=== PATIENT | male | born 1960 | race Caucasian/White ===

== ENCOUNTER 2018-07-30 04:59 | Emergency (ER) | payer OTHER, SELFPAY ==
[2018-07-30] VITALS (51 sets, daily range): BP systolic 118–157; BP diastolic 59–80; PULSE 61–94; RESP 7–54; TEMP 37; O2SAT 93–98
[2018-07-30] MEDS: Aspirin 81 MG CHEW 324 MG CH (05:21)
[2018-07-30] MEDS: Normal Saline Flush 10 ML SYR IVP (05:22)
--- NOTE | 2018-07-30 05:32 | ED.GENADUL_ITS ---
Discharge Plan Disposition Patient Disposition: HOME Condition: Good Discharge Details Chief Complaint: Chest Pain Clinical Impression: Chest pain Primary Care Provider: Laurel Rodriguez ED Provider: Crista Biggs Home Meds and New Rx's Prescriptions: Continue esomeprazole magnesium [Nexium] 40 MG capsule,delayed release(DR/EC) 40 mg PO DAILY Qty: 30 RF: 6 venlafaxine 37.5 MG capsule,extended release 24hr 37.5 mg PO DAILY Qty: 90 RF: 3 sucralfate 1 gram tablet 1 g PO QID Qty: 90 RF: 1 acetaminophen [Tylenol] 325 MG tablet 650 mg PO PRN PRNRF: 0 Discharge Instructions Instructions: Chest Pain (ED) Additional Instructions: Please take your regular medications as prescribed. Call your primary care doctor today to schedule follow-up appointment for next week. Return immediately to the emergency department any worsening or new concerning symptoms. Referrals: Laurel Rodriguez MD [Primary Care Provider] - Discharge Data Discharge Date/Time-TO BE ENTERED AT DEPARTURE: 07/30/18 10:46 Discharge Physician: Crista Biggs Medical Decision Making <Mandeep Pang MD - Last Filed: 07/31/18 00:40> Patient presenting with complaint of left-sided chest pain for 12 hours. States at times last night it woke him up. It has more or less been there throughout the night. At this point only describing it as discomfort not pain. No real associated symptoms, maybe a little shortness of breath at times. No radiation of pain. Pain better with standing. Presentation not worrisome for dissection or PE. Not overly concerning for ACS. May be related to his reflux especially since standing makes it better. Initial EKG is unchanged from previous. He is given chewable aspirin. Laboratory studies and chest x-ray ordered. Patient got relief with a GI cocktail. Chest x-ray is unremarkable. Laboratory studies unremarkable. First troponin negative. HEART score is 2. If repeat troponin and EKG unchanged can be discharged home to follow-up with primary care. Resume his previous medications which he has not been taking the way he is supposed to as prescribed both for his depression and his reflux. Patient will be signed out to oncoming physician Dr. Biggs. Lab Data Lab results reviewed: Yes I reviewed the patient's lab results. ECG Data Attestation: I personally reviewed and interpreted this ECG (s) as follows: Prior ECG tracings: available for review Interpretation: Sinus rhythm at 93 with normal axis and normal intervals. No acute ST changes noted. No change from previous dated October 26, 2014. <Crista Biggs DO - Last Filed: 07/30/18 10:41> Please see Dr. Pang's note for initial presentation, exam and plan. Patient is a 58-year-old male with a history of hypertension, GERD who presented with chest pain since last night, worse when laying down on his back. Patient states he takes sucralfate QID and has only been taking it twice daily. Patient was given aspirin and a GI cocktail in the ED and pain improved. First troponin negative. EKG on arrival no acute change compared to previous. Plan upon endorsement was for second troponin and repeat EKG. Repeat EKG notes a rate of 71, sinus, no acute ST elevation or depression, no acute change compared to EKG on arrival and previous EKG 2015. QTc 406. QRS 108. He has a nonspecific QRS widening which is been seen in previous EKG 2014. Patient states that he gets similar pain occurring 2-3 times yearly over the past several years that he and significant other states is usually related to not taking his Effexor. Patient states he has not taken it for several weeks and this usually causes anxiety which causes these episodes similar to previous. He states he does not take his Effexor due to causing sexual dysfunction. Patient states he pain was worse when it started at 5pm last night and currently denies any chest pain and is requesting to go home. Discussed with patient that as his symptoms are similar to previous, improved with GI cocktail, may be more likely GI related due to GI medication noncompliance or anxiety related due to antianxiety medication noncompliance. Discussed that with 2- troponins and 2 stable unchanged EKGs compared to previous, less likely ACS, but can recommend an outpatient stress test. Patient and significant other state they think this is more likely anxiety, and would rather follow-up with his primary care doctor first rather than an outpatient stress test. Patient was instructed to call his primary care doctor's office today to schedule follow-up appointment for next week and to return here immediately if worse. HPI <Mandeep Pang MD - Last Filed: 07/31/18 00:40> General Mode of arrival: ambulatory . Date/Time Provider Initiated Documentation: 07/30/18 05:08 . Limitations to Documentation: no limitations . Information obtained by: patient and family . HPI Narrative: Patient presents to ED with complaints of chest pain. Patient reports having chest pain under the left breast since about 5 or 6:00 last night. It does not really radiate anywhere. Maybe felt a little short of breath at times. Denies nausea, diaphoresis, lightheadedness. Pain is better if he standing up. It is not worse with activity. He has had it previously thought possibly related to his reflux. He has been taking his reflux medications but not his depression medications. Currently not really describing pain at all. States it is more like just a little discomfort. He has no fever or cough. He has no leg pain, leg swelling, history of clots. Pain is not pleuritic in nature. Related Data Home Medications Medication Instructions Recorded Confirmed acetaminophen [Tylenol] 650 mg PO PRN PRN 02/20/16 07/30/18 esomeprazole magnesium [Nexium] 40 mg PO DAILY #30 tab-cap 02/02/18 07/30/18 venlafaxine 37.5 mg PO DAILY #90 tab-cap 03/17/18 07/30/18 sucralfate 1 gram tablet 1 g PO QID #90 tab-cap 06/09/18 07/30/18 Previous Rx's Medication Instructions Recorded esomeprazole magnesium [Nexium] 40 mg PO DAILY #30 tab-cap 02/02/18 venlafaxine 37.5 mg PO DAILY #90 tab-cap 03/17/18 sucralfate 1 gram tablet 1 g PO QID #90 tab-cap 06/09/18 Allergies Allergy/AdvReac Type Severity Reaction Status Date / Time iohexol [From Omnipaque] Allergy Intermediate Skin Rash Unverified 07/30/18 05: 07 Review of Systems <Mandeep Pang MD - Last Filed: 07/31/18 00:40> Constitutional Denies chills, Denies excessive sweating, Denies fatigue, Denies fever(s), Denies headache(s), Denies malaise, Denies night sweats and Denies weakness Eyes Denies eye discharge and Denies eye pain ENT Denies otalgia, Denies headache(s), Denies nasal congestion, Denies neck pain, Denies sinus pain and Denies sore throat Cardiovascular Reports chest pain, Denies chest pain with activity, Denies diaphoresis, Denies syncope, Denies pedal edema, Denies edema, Denies lightheadedness, Denies radiating jaw, neck or arm pain, Denies palpitations, Reports dyspnea (mild intermittent) and Denies dyspnea on exertion Respiratory Denies chest congestion, Denies cough, Reports dyspnea (mild intermittent) and Denies dyspnea on exertion Gastrointestinal Denies abdominal pain, Denies diarrhea, Denies nausea and Denies vomiting Genitourinary Denies hematuria and Denies flank pain Musculoskeletal Denies abnormal gait, Denies back pain, Denies myalgias, Denies arthralgias, Denies neck pain, Denies numbness and Denies tingling Integumentary/Breasts Denies rash Neurologic Denies abnormal speech, Denies abnormal gait, Denies confusion, Denies syncope, Denies headache(s), Denies focal weakness, Denies numbness, Denies tingling, Denies paresthesias and Denies weakness Psychiatric Denies confusion Endocrine Denies excessive sweating, Denies fatigue and Denies palpitations Exam <Mandeep Pang MD - Last Filed: 07/31/18 00:40> Const General: cooperative, comfortable and no acute distress Orientation: alert and oriented x3 [facility] Head: normocephalic and atraumatic Mouth: moist mucous membranes Neck Neck: normal visual inspection, trachea midline, supple and no JVD Chest Chest: normal inspection of the chest and normal palpation of entire chest wall Resp Effort & Inspection: normal respiratory effort Auscultation: clear to auscultation bilaterally Cardio Rate: regular rate Rhythm: regular rhythm Heart Sounds: S1 normal and S2 normal Pulses: radial pulses present GI Inspection: normal to inspection Palpation: soft, not firm, no guarding and tender in the epigastrum (mild) Back/Spine/Pelvis Thoracic/Lumbar Spine: thoraco-lumbar ROM normal Skin General skin exam: no rashes or lesions noted Neuro General: alert, oriented x3, no focal motor deficits and CN's II-XI intact bilaterally Extrem General: normal to inspection, full ROM, no clubbing, cyanosis or edema and no calf tenderness
[2018-07-30 05:36] LABS: Abs Immature Grans 0.02 k/cumm (0.0-0.09); Absolute Basophil Count 0.04 k/cumm (0.0-0.2); Absolute Neutrophil Count 3.11 k/cumm (1.2-6.7); Basophils % 0.7; Eosinophils % 6.8; HCT 43.1 % (40.0-50.0); HGB 14.4 g/dL (13.5-17.5); Immature Grans % 0.3; Lymphocytes % 25.6; Mean Corp. HGB Concentration 33.4 g/dL (32.0-36.0); Mean Corpuscular Hemoglobin 28.7 pg (27.0-33.0); Mean Corpuscular Volume 85.9 fL (80-95); Mean Platelet Volume 9.9 fL (8.0-11.0); Monocytes % 13.6; Platelet Count 299 x1000/uL (130-400); RBC 5.02 m/cumm (4.50-6.00); RBC Distribution Width 14.8 % (11.8-14.1); White Blood Cell Count 5.87 k/cumm (4.4-10.8)
--- NOTE | 2018-07-30 05:40 | DI.RAD_ITS ---
SYMPTOMS/DIAGNOSIS: CHEST PAIN PA AND LATERAL CHEST: The heart is normal in size. The lungs are clear. The mediastinal structures and pleura appear intact. CONCLUSION: Normal chest. No evidence of acute cardiopulmonary disease.
[2018-07-30 05:47] LABS: ALT 34 U/L (12-78); AST 20 U/L (15-37); Albumin 3.6 g/dL (3.4-5.0); Alkaline Phosphatase 107 U/L (46-116); Anion Gap 9.5 mmol/L (3-11); BUN 29 mg/dL (7-18); Bilirubin, Total 0.3 mg/dL (0.2-1.0); CO2 27.5 mmol/L (21.0-32.0); CREATININE 0.87 mg/dL (0.70-1.30); Calcium 8.6 mg/dL (8.5-10.1); Chloride 105 mmol/L (98-107); Glucose 108 mg/dL (70-100); Potassium 3.7 mmol/L (3.5-5.1); Sodium 142 mmol/L (136-145); Total Protein 7.2 g/dL (6.4-8.2); Troponin I < 0.02 ng/mL (0.00-0.06)
--- NOTE | 2018-07-30 05:50 | DI.VRAD_ITS ---
EXAM: XR Chest, 2 Views EXAM DATE/TIME: 07/30/2018 5:21 AM CLINICAL HISTORY: 58 years old, male; Pain; Chest pain; Type not specified; Patient HX: Chest pain, light headed TECHNIQUE: XR of the chest, 2 views. COMPARISON: CR CHEST 2 VIEWS PA,LAT 10/26/2014 9:00 AM FINDINGS: Lungs: Lungs mildly hyperinflated but clear of an acute process. Pleural space: Unremarkable. No pleural effusion. No pneumothorax. Heart/Mediastinum: Heart size upper limits normal. Bones/joints: Degenerative changes noted throughout the spine. IMPRESSION: Mild hyperinflation. No acute process. Dictated and Authenticated by: Robert Dumas MD. Ordering:WILLY STERLING MD
[2018-07-30 08:43] LABS: Troponin I < 0.02 ng/mL (0.00-0.06)
== END 2018-07-30 10:46 | disposition home or self-care (01) ==
PROVIDERS: Emergency Medicine; Emergency Provider Physician Assistant; PCP Family Medicine
DX: R07.9 Chest pain, unspecified (principal); K21.9 Gastro-esophageal reflux disease without esophagitis; I10 Essential (primary) hypertension
CPT/HCPCS: 36415; 80053; 93005; 99285; 71046; 83735; 84484; 85025; 93010; 99284

== ENCOUNTER 2018-12-01 13:07 | Emergency (ER) | payer OTHER, SELFPAY ==
[2018-12-01 13:17] VITALS: BP 159/103; PULSE 96; RESP 20; TEMP 37.1; O2SAT 98
--- NOTE | 2018-12-01 13:58 | W.ED.GENAD ---
Discharge Plan Disposition Patient Disposition: HOME Condition: Good Discharge Details Chief Complaint: Laceration Clinical Impression: Laceration of right thumb, Laceration of right index finger Primary Care Provider: Laurel Rodriguez ED Provider: Simon Reyes Home Meds and New Rx's Prescriptions: New amoxicillin-pot clavulanate [Augmentin] 875-125 mg tablet 1 tab PO BID Qty: 20 RF: 0 No Action venlafaxine 37.5 MG capsule,extended release 24hr 37.5 mg PO DAILY Qty: 90 RF: 3 esomeprazole magnesium [Nexium] 40 mg capsule,delayed release(DR/EC) 40 mg PO DAILY Qty: 30 RF: 6 sucralfate 1 gram tablet 1 g PO BID Qty: 60 RF: 1 acetaminophen [Tylenol] 325 MG tablet 650 mg PO PRN PRNRF: 0 Discharge Instructions Instructions: Laceration (ED), Finger Laceration (ED) Additional Instructions: Please only take the antibiotic if you notice any redness, swelling, pain or discharge. Please leave the dressing on for 24 hours, then you may remove and begin cleaning the wound at least twice a day with soap and water. Do not directly soak the area. Watch for any signs of infection and return if any increasing redness, swelling, pain, drainage. If you notice any worsening of your symptoms, or any new symptoms such as vomiting, diarrhea, fever, chills, shortness of breath, chest pain, numbness, weakness, or fainting , please return immediately to the emergency department for reevaluation. Please follow up with your primary care provider as soon as possible for reassessment and reevaluation. As always, it was a pleasure participating in your medical care today. Referrals: Laurel Rodriguez MD [Primary Care Provider] - Medical Decision Making This is a 58-year-old male who is [id number] who presents for evaluation of laceration. 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 He is suffered a notable laceration to his thumb and index finger. Each laceration was roughly 6-7 cm. Surprisingly he demonstrated a very normal exam otherwise, he is neurovascularly intact, excellent two-point discrimination, no signs of arterial bleeding, normal sensation throughout, no deficits that could be appreciated on exam. Probing of the wound revealed no evidence of deep tendon involvement or presents. The laceration actually was a bit more superficial in nature in the subcutaneous fat and skin. The patient hand was soaked in a chlorhexidine water solution, was then scrubbed and irrigated with copious amounts of normal saline and chlorhexidine. It was anesthetized with a 50-50 mixture of lidocaine with bupivacaine, then sutured with 14 sutures total with 4-0 nylon. 8 sutures were placed in the thumb and 6 were placed in the index finger. Patient tolerated this well, demonstrate good movement afterwards. With no evidence of foreign body, no other significant abnormality, and a normal neurovascular exam of feel he can be safely discharged home. His significant other is a nurse, and red flags were discussed with him and her for which to immediately return. I have extensively reviewed the treatment plan and discharge instructions with the patient and their family. I have addressed all patient concerns at this time. The patient and family was made aware of what symptoms to monitor for that would warrant a return to the emergency department. Discussed the plan with the patient and family, they demonstrate verbal understanding and agreement with our assessment and plan at this time. Procedure: Suture Patient was positioned appropriately, 10cc lidocaine and was used as a local anesthetic for both fingers with a digital. Chlorhexidine and normal saline were used for irrigation. Patient was sterile draped with wound exposed. 14 sutures using 4-0 nylon were placed with good approximation. A small amount of Dermabond was placed over these afterwards, the patient tolerated this well Estimated Blood Loss: 1ml The patient tolerated the procedure well and there were no complications. HPI General Date/Time Provider Initiated Documentation: 12/01/18 13:58. HPI Narrative: This is a 58-year-old male who is [id number] who presents for evaluation of laceration. 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 He is suffered a notable laceration to his thumb and index finger. Each laceration was roughly 6-7 cm. The patient denies any numbness tingling weakness or difficulty moving his fingers whatsoever. Tetanus is not up-to-date and so we will updated here today. Patient denies any other complaints, or any other modifying factors. He denies any injury to his head neck arms chest abdomen or pelvis. Related Data Home Medications Medication Instructions Recorded Confirmed acetaminophen [Tylenol] 650 mg PO PRN PRN 02/20/16 12/01/18 venlafaxine 37.5 mg PO DAILY #90 tab-cap 03/17/18 12/01/18 esomeprazole magnesium 40 mg 40 mg PO DAILY #30 tab-cap 09/16/18 12/01/18 capsule,delayed release sucralfate 1 gram tablet 1 g PO BID #60 tab-cap 11/16/18 12/01/18 amoxicillin-pot clavulanate 1 tab PO BID #20 tab 12/01/18 [Augmentin] Previous Rx's Medication Instructions Recorded venlafaxine 37.5 mg PO DAILY #90 tab-cap 03/17/18 esomeprazole magnesium 40 mg 40 mg PO DAILY #30 tab-cap 09/16/18 capsule,delayed release sucralfate 1 gram tablet 1 g PO BID #60 tab-cap 11/16/18 amoxicillin-pot clavulanate 1 tab PO BID #20 tab 12/01/18 [Augmentin] Allergies Allergy/AdvReac Type Severity Reaction Status Date / Time iohexol [From Omnipaque] Allergy Intermediate Skin Rash Unverified 12/01/18 13:20 General Stated Complaint: Laceration SANJUANA: 3 Review of Systems Review of Systems All systems reviewed & are unremarkable except as noted in HPI and below PFSH Family History Mother No problems noted. Sister No problems noted. Son No problems noted. Social History Smoking/Tobacco Use Status: Never Alcohol Intake: never Drug use: Never Substance use type: does not use Do you feel safe at home: Yes Do you feel safe in your relationship?: Yes Exam Narrative Exam Narrative: 1.Const: Well-nourished, Well-developed, appearing stated age 2.Eyes: PERRL, no conjunctival injection, and symmetrical lids. 3.ENT: Atraumatic external nose and ears. Moist MM. Neck: Symmetric, trachea midline, No thyromegaly. 4.CVS: +S1/S2, No murmurs or gallops. Peripheral pulses 2+ and equal in all extremities. Brisk capillary refill in all extremities. 5.RESP: Unlabored respiratory effort. Clear to auscultation bilaterally. No wheezes rales or rhonchi 6.GI: Soft, Nontender/Nondistended, No hepatosplenomegaly. No guarding or rebound. 7.MSK: Normocephalic, Extremities w/o deformity or ttp No cyanosis or clubbing, Normal movement of all extremities. Symmetrically palpable radial and ulnar pulses. Right hand: Capillary refill <2 seconds to all digits. Intact sensation to light touch of the radial, median and ulnar nerves demonstrated by testing in the dorsal web space of the thumb, the distal palmar aspect of the index finger, and the lateral surface of the fifth finger. 2 point discrimination intact to 5mm (up to 6mm can be normal in digits 3-5) of discrimination in the affected digits to both the index and thumb. 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 Intact recurrent median nerve as demonstrated by ability to move thumb fully through opposition, abduction and flexion. No snuffbox tenderness. Evaluation of the lacerations demonstrates no evidence of deep involvement with the tendon structures. Laceration appears to be focused mainly on the superficial skin and subcutaneous fat. Normal strength and no evidence of tendon involvement or weakness. 8.Skin: Warm, Dry. No rashes. Patient demonstrates 2 lacerations, both are on his right hand. On the ventral component of his hand for the thumb and index finger. Thumb laceration is linear extending down the palmar aspect roughly 6 cm. It is over the flexor surface. Laceration down the index finger wraps serpiginously around the finger also roughly 6-7 cm, going from the palmar aspect around to the medial component. As noted before, lacerations are linear, and not serrated. No other significant abnormalities. Small abrasion over the palmar aspect of the hand as well. Nothing requiring suturing. 9.Neuro: machine skiver II-XII grossly intact. Sensation grossly intact, no focal neurologic deficits. Please see musculoskeletal 10.Psych: (AAO) x3. Appropriate mood and affect Course Vital Signs Temperature 37.1 C 12/01/18 13:17 Pulse 96 H 12/01/18 13:17 Respiratory Rate 20 12/01/18 13:17 Blood Pressure 159/103 H 12/01/18 13:17 Pulse Oximetry 98 12/01/18 13:17 Temperature 37.1 C 12/01/18 13:17 Temperature Source Temporal Artery Scan 12/01/18 13:17 Pulse 96 H 12/01/18 13:17 Respiratory Rate 20 12/01/18 13:17 Respiratory Effort 12/01/18 13:17 Blood Pressure 159/103 H 12/01/18 13:17 Blood Pressure Position Sitting 12/01/18 13:17 Pulse Oximetry 98 12/01/18 13:17 Oxygen Delivery Method Room Air 12/01/18 13:17 Oxygen Flow Rate 0 12/01/18 13:17 Pain Level 4 12/01/18 13:17
--- NOTE | 2018-12-01 15:08 | NUR.NOTE ---
Nursing Note: wounds wrapped with telfa and conform wrap.
== END 2018-12-01 14:40 | disposition home or self-care (01) ==
LOC: ER 14:07
PROVIDERS: Emergency Provider Student in an Organized Health Care Education/Training Program; PCP Family Medicine
DX: S61.011A Laceration without foreign body of right thumb without damage to nail, initial encounter (principal); S61.210A Laceration without foreign body of right index finger without damage to nail, initial encounter; W45.8XXA Other foreign body or object entering through skin, initial encounter; Y99.0 Civilian activity done for income or pay
CPT/HCPCS: 12002; 90471

== ENCOUNTER 2018-12-11 09:39 | Emergency (ER) | payer SELFPAY ==
--- NOTE | 2018-12-11 10:11 | ED.GENADUL_ITS ---
Discharge Plan Disposition Patient Disposition: HOME Condition: Stable Discharge Details Chief Complaint: SutureRem Clinical Impression: Visit for suture removal Primary Care Provider: Laurel Rodriguez ED Provider: Crista Biggs Home Meds and New Rx's Prescriptions: Continued venlafaxine 37.5 MG capsule,extended release 24hr 37.5 mg PO DAILY Qty: 90 RF: 3 esomeprazole magnesium [Nexium] 40 mg capsule,delayed release(DR/EC) 40 mg PO DAILY Qty: 30 RF: 6 sucralfate 1 gram tablet 1 g PO BID Qty: 60 RF: 1 acetaminophen [Tylenol] 325 MG tablet 650 mg PO PRN PRNRF: 0 Discharge Instructions Instructions: Stitches Removal (ED) Additional Instructions: Keep your wound clean, dry and intact. Apply topical antibiotic ointment for any signs of redness, swelling or pain. Start the antibiotic prescription if you notice any worsening signs of redness, swelling and pain that is not improved with topical antibiotic ointment. Cover the wound with a dressing or Band-Aid if there is risk of contamination. Follow-up with your primary care doctor in 2 days for reevaluation. Return immediately to the emergency department with any worsening or new concerning symptoms fever, or worsening redness, swelling, or pain not relieved with antibiotics. Discharge Data Discharge Physician: Crista Biggs Medical Decision Making 58-year-old male who presents for suture removal of right thumb and right index finger of sutures placed 10 days ago after a fall at work. Wound healing well. Patient was given a prescription for antibiotics but did not start this. 8 sutures noted in the right thumb and 6 sutures noted in right index finger. 11 sutures removed by nurse. 3 remaining sutures noted within scab of index finger laceration which were removed by me. There was some subsequent removal of the scab and bleeding. Patient tolerated this well. Antibiotic ointment and dressing were applied. Patient was instructed to keep wounds clean, dry and intact. He is instructed to apply topically and adequate with any signs of infection. He was instructed to fill the antibiotic prescription if he notices any worsening signs of infection not relieved with a topical antibiotic ointment. He is instructed to follow-up with primary care doctor next week for reevaluation and return here immediately with any significant worsening signs of infection such as fever, red line streaking up extremity or any other concerns. HPI General Mode of arrival: ambulatory . Date/Time Provider Initiated Documentation: 12/11/18 09:52 . Limitations to Documentation: no limitations . Information obtained by: patient . HPI Narrative: Patient is a 58-year-old male presents for suture removal of sutures placed in right thumb and right index finger 10 days ago after a fall at work. States wound is been healing well. He denies any significant signs of infection. He was given a prescription for antibiotics but states he did not need to start this. Tetanus was given at that time. Related Data Home Medications Medication Instructions Recorded Confirmed acetaminophen [Tylenol] 650 mg PO PRN PRN 02/20/16 12/11/18 venlafaxine 37.5 mg PO DAILY #90 tab-cap 03/17/18 12/11/18 esomeprazole magnesium 40 mg 40 mg PO DAILY #30 tab-cap 09/16/18 12/11/18 capsule,delayed release sucralfate 1 gram tablet 1 g PO BID #60 tab-cap 11/16/18 12/11/18 Previous Rx's Medication Instructions Recorded venlafaxine 37.5 mg PO DAILY #90 tab-cap 03/17/18 esomeprazole magnesium 40 mg 40 mg PO DAILY #30 tab-cap 09/16/18 capsule,delayed release sucralfate 1 gram tablet 1 g PO BID #60 tab-cap 11/16/18 Allergies Allergy/AdvReac Type Severity Reaction Status Date / Time iohexol [From Omnipaque] Allergy Intermediate Skin Rash Unverified 12/11/18 09:46 General Stated Complaint: SutureRem SANJUANA: 3 Review of Systems Review of Systems All systems reviewed & are unremarkable except as noted in HPI and below PFSH Medical History Obstructive sleep apnea syndrome in adult (Chronic 07/27/13) Depression (Chronic 06/01/13) GERD (gastroesophageal reflux disease) (Chronic) Surgical History EYE SURGERY (Inactive) Family History Mother No problems noted. Sister No problems noted. Son No problems noted. Social History (Reviewed 12/11/18 @ 10:43 by DODIE Tovar Smoking/Tobacco Use Status: Never Alcohol Intake: never Drug use: Never Substance use type: does not use Do you feel safe at home: Yes Do you feel safe in your relationship?: Yes Exam Const General: cooperative, healthy appearing and no acute distress HENMT Head: normal to inspection Mouth: oral mucosae normal Eyes General: appearance normal, both eyes and all related structures Neck Neck: normal visual inspection Resp Effort & Inspection: normal respiratory effort and able to speak in complete sentences Cardio Rate: regular rate Skin General skin exam: no rashes or lesions noted Neuro General: alert, awake and oriented x3 Motor: muscle tone normal throughout Extrem Other: [address] on right thumb. [address] on right index finger with a 2 cm x 3 mm scab noted in center of laceration with sutures embedded within this. Wounds otherwise appear to be healing well without signs of induration, fluctuance, drainage, erythema. Full range of motion. Cap Refill less than 2 seconds. Psych Appearance: grossly normal Affect: normal affect Course Respiratory Effort Non-Labored 12/11/18 09:43
== END 2018-12-11 10:47 | disposition home or self-care (01) ==
PROVIDERS: Emergency Provider Physician Assistant; PCP Family Medicine
DX: S61.011D Laceration without foreign body of right thumb without damage to nail, subsequent encounter (principal); S61.210D Laceration without foreign body of right index finger without damage to nail, subsequent encounter; X58.XXXD Exposure to other specified factors, subsequent encounter; Z48.02 Encounter for removal of sutures

== ENCOUNTER 2019-04-07 07:12 | Outpatient (CLI) | payer OTHER, SELFPAY ==
[2019-04-07 08:37] LABS: ALT 29 U/L (12-78); AST 15 U/L (15-37); Albumin 3.9 g/dL (3.4-5.0); Alkaline Phosphatase 110 U/L (46-116); Anion Gap 9.2 mmol/L (3-11); BUN 22 mg/dL (7-18); Bilirubin, Total 0.3 mg/dL (0.2-1.0); CO2 26.8 mmol/L (21.0-32.0); CREATININE 0.85 mg/dL (0.70-1.30); Chloride 104 mmol/L (98-107); Glucose 109 mg/dL (70-100); Magnesium 2.2 mg/dL (1.8-2.4); Potassium 4.4 mmol/L (3.5-5.1); Sodium 140 mmol/L (136-145); Total Protein 7.2 g/dL (6.4-8.2)
== END 2019-04-07 07:32 ==
PROVIDERS: PCP Family Medicine; Visit Provider Family Medicine
DX: E83.42 Hypomagnesemia (principal); K21.9 Gastro-esophageal reflux disease without esophagitis
CPT/HCPCS: 36415; 80053; 83735

== ENCOUNTER 2020-04-16 01:55 | Outpatient (CLI) | payer OTHER, SELFPAY ==
--- NOTE | 2020-04-16 08:00 | DI.US_ITS ---
EXAM: US CAROTID CLINICAL HISTORY: dizziness/ left carotid bruit,R09.89. TECHNIQUE: Ultrasound carotids performed using grayscale, color-flow, and spectral Doppler imaging. COMPARISON: No exams were available for comparison FINDINGS: RIGHT CAROTID ARTERY: Plaque: No calcific plaque identified. Velocity elevation: None. LEFT CAROTID ARTERY: Plaque: No calcific plaque identified. Velocity elevation: None. VERTEBRAL ARTERIES: Antegrade flow. No hemodynamically significant velocity elevations are present. IMPRESSION: No evidence for hemodynamically significant carotid stenosis. Criteria for Carotid Stenosis: Normal: ICA PSV <125 cm/s no plaque or intimal thickening is visible. <50% stenosis: ICA PSV <125 cm/s and plaque or intimal thickening is visible. 50-69% stenosis: ICA PSV is 125-250 cm/s and plaque is visible. >70% stenosis to near occlusion: ICA PSV >250 cm/s with visible plaque and luminal narrowing. DATA REPOSITORY:
== END 2020-04-16 02:15 ==
PROVIDERS: PCP Family Medicine; Visit Provider Family Medicine
DX: R09.89 Other specified symptoms and signs involving the circulatory and respiratory systems (principal); R42 Dizziness and giddiness
CPT/HCPCS: 93880

== ENCOUNTER 2020-04-20 04:13 | Outpatient (CLI) | payer OTHER, SELFPAY ==
[2020-04-20 14:05] LABS: Abs Immature Grans 0.02 10^3/uL (0.0-0.06); Absolute Basophil Count 0.05 10^3/uL (0.0-0.2); Absolute Eosinophil Count 0.36 10^3/uL (0.0-0.7); Absolute Lymphocyte Count 1.53 10^3/uL (1.2-3.4); Absolute Monocyte Count 0.61 10^3/uL (0.1-0.8); Absolute Neutrophil Count 3.44 10^3/uL (1.2-6.7); Basophils % 0.8; HCT 41.4 % (40.0-50.0); HGB 13.8 g/dL (13.5-17.5); Immature Grans % 0.3; Lymphocytes % 25.5; MCH 29.2 pg (27.0-33.0); MCHC 33.3 % (32.0-36.0); MCV 87.5 fL (80-95); MPV 9.5 fL (8.0-11.0); Monocytes % 10.1; Neutrophils % 57.3; Nucleated RBC 0 %; Platelet Count 286 10^3/uL (130-400); RBC 4.73 10^6/uL (4.36-5.78); RDW 14.2 % (11.8-14.1); RDW-SD 45.8 fL; WBC 6.01 10^3/uL (4.4-10.8)
[2020-04-20 15:18] LABS: ALT 34 U/L (16-63); AST 19 U/L (15-37); Albumin 3.9 g/dL (3.4-5.0); Alkaline Phosphatase 109 U/L (46-116); Anion Gap 11.1 mmol/L (3-11); BUN 24 mg/dL (7-18); Bilirubin, Total 0.4 mg/dL (0.2-1.0); CO2 23.9 mmol/L (21.0-32.0); Calcium 8.7 mg/dL (8.5-10.1); Calculated LDL 131 mg/dL (<100); Chloride 105 mmol/L (98-107); Cholesterol 195 mg/dL (<200); Glucose 107 mg/dL (74-106); HDL Cholesterol 50 mg/dL (40-60); Sodium 140 mmol/L (136-145); TSH 1.32 uIU/mL (0.36-3.74); Total Protein 6.7 g/dL (6.4-8.2); Triglyceride 74 mg/dL (<150)
[2020-04-23 09:09] LABS: PSA, Screening 0.5 ng/mL (0.0-3.5)
== END 2020-04-20 04:33 ==
PROVIDERS: PCP Family Medicine; Visit Provider Family Medicine
DX: R42 Dizziness and giddiness (principal); N40.0 Benign prostatic hyperplasia without lower urinary tract symptoms; E83.42 Hypomagnesemia; Z13.220 Encounter for screening for lipoid disorders
CPT/HCPCS: 36415; 80053; 80061; 84153; 83735; 84443; 85025

== ENCOUNTER 2021-03-28 08:10 | Emergency (ER) | payer OTHER, SELFPAY ==
[2021-03-28 08:12] VITALS: BP 154/88; PULSE 85; RESP 18; TEMP 36.5; O2SAT 97
--- NOTE | 2021-03-28 08:15 | DI.RAD_ITS ---
Exam(s) XR CHEST 2V PA LATERAL EXAM: XR CHEST 2V PA LATERAL CLINICAL HISTORY: Fever. TECHNIQUE: 2D digital imaging was performed. COMPARISON: CR XR CHEST 2V PA LATERAL from 07/30/2018 FINDINGS: Heart size is normal. The mediastinum is not widened. Lungs are clear. No infiltrates nor pleural effusions. IMPRESSION: No acute pulmonary findings.No significant change from July 2018. DATA REPOSITORY: RADIATION DOSE DELIVERED:
--- NOTE | 2021-03-28 08:30 | DI.CT_ITS ---
Exam(s) CT HEAD SINUS WO EXAM: CT HEAD SINUS WO CLINICAL HISTORY: LÓPEZ, fevers. TECHNIQUE: Imaging Protocol: Axial computed tomography images with coronal and sagittal reformatted images were created and reviewed COMPARISON: CT HEAD AND CSPINE W/O CONTRAST from 03/14/2012 FINDINGS: BRAIN: There are no skull fractures nor fluid in the visualized paranasal sinuses. Some focal mucosal thick ening is noted posteriorly in the right maxillary sinus. Remainder of the paranasal sinuses are fay r as are the mastoid air cells. 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 This appears unchange d from 2012. There is no evidence of intracranial hemorrhage, mass effect, or shift of midline structures. There are no extra-axial fluid collections. The ventricles are not enlarged or shifted and there is no blo od within the ventricular system nor within the basal cisterns. PARANASAL SINUSES: There are 3 focal areas of similar benign-appearing mucosal thickening in the right maxillary sinus, largest of these measuring 8 x 6 by 14 millimeters. Probably polyps versus is post inflammatory rete ntion cysts.. Not associated with fluid level nor bone dehiscence. Both ostiomeatal units are paten t. The opposite-left maxillary sinus appears unremarkable. No mucosal thickening nor fluid in the r emainder of the paranasal sinuses. The nasal septum is midline. No evidence of significant nasal septal spur. No evidence of jane bu llosa. IMPRESSION: No acute intracranial findings on this noninfused CT scan of the brain. Right maxillary sinus multifocal mucosal thickening as described above, not associated with fluid lev el nor bone dehiscence. Left maxillary sinus is clear. Both ostiomeatal units are patent. Other paranasal sinuses are clear. RADIATION DOSE DELIVERED: 539.67 mGy.cm Total DLP DATA REPOSITORY: All CT scans at this facility are submitted to the National Radiology Data Registry (NRDR) Dose Index Registry (DIR) with the [employer] ([employer]). RADIATION OPTIMIZATION: All CT scans at this facility use at least one of these dose optimization te chniques: automated exposure control; mA and/or kV adjustment per patient size (includes targeted exa ms where dose is matched to clinical indication); or iterative reconstruction.
--- NOTE | 2021-03-28 08:31 | ED.GENADUL_ITS ---
Discharge Plan Disposition Patient Disposition: HOME Condition: Improving Discharge Details Clinical Impression: Cystitis Primary Care Provider: Laurel Rodriguez ED Provider: Steven Rosales Home Meds and New Rx's Prescriptions: New ciprofloxacin HCl [Cipro] 500 mg tablet 500 mg PO BID 7 Days Qty: 14 RF: 0 Continued sildenafil 50 mg tablet 25 - 50 mg PO DAILY PRN (Reason: sexual activity) Qty: 10 RF: 0 sucralfate 1 gram tablet 1 g PO BID Qty: 180 RF: 4 venlafaxine 37.5 mg capsule,extended release 24hr 37.5 mg PO DAILY Qty: 90 RF: 4 esomeprazole magnesium [Nexium] 40 mg capsule,delayed release(DR/EC) 40 mg PO DAILY Qty: 90 RF: 2 Discharge Instructions Additional Instructions: Our care management team will arrange a follow-up for you in urology clinic. We will also ask for a follow-up with Dr. Rodriguez. Take ciprofloxacin as prescribed for 1 week's time. May continue to use of ibuprofen, minimize Tylenol use to 1 or 2 times per day. Home to rest with ongoing small, frequent sips of fluids so that you maintain good hydration. Return to the ER for any acute concerns. 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 He is fully immunized against COVID-19. He has had 5 days of fever, headache, joint and body ache. Positive chills at home. Fever has responded to ibuprofen and Tylenol. He has had no vomiting, abdominal pain, or change to urination. No known sick contacts. He arrives to the ER having taken acetaminophen and ibuprofen at home, with a mild frontal headache. He does not exhibit signs of meningitis, nor has he had a stiff neck. Differential diagnosis is broad including viral illnesses, occult UTI, tickborne illness. IV access obtained, fluids administered, patient had blood cultures, urinalysis, laboratory panel including Covid, tick panel. Chest x-ray: No acute pulmonary findings. CT head and sinus: Acute no acute intracranial findings. Mucosal thickening of right maxillary sinus, see formal report. UA; + leuk esterase, +nitrite, numerous red blood cells. Culture pending. Remainder of labs show unremarkable CBC, basic chemistries within normal limits. Slight elevation of LFTs. Elevated CRP. Patient given ceftriaxone 1 g. Following resuscitative fluids, lactic acid recheck improved to 0.9. Patient subjectively better. I will place him on ciprofloxacin. We will ask for follow-up with urology. We will also have the patient follow-up in primary care clinic for recheck of liver enzymes and will minimize his use of Tylenol. He is stable, improved, appropriate for outpatient management. Lab Data Lab results reviewed: Yes I reviewed the patient's lab results. Labs: Laboratory Results - last 24 hr 03/28/21 03/28/21 03/28/21 08:22 08:22 08:22 WBC 6.65 RBC 4.76 Hgb 13.7 Hct 41.4 MCV 87.0 MCH 28.8 MCHC 33.1 RDW 14.6 H Plt Count 290 MPV 9.8 Immature Gran % 0.5 Neutrophils % 70.8 Lymphocytes % 12.9 Monocytes % 11.3 Eosinophils % 3.9 Basophils % 0.6 Nucleated RBC % 0 Absolute Neutrophils 4.71 Absolute Lymphocytes 0.86 L Absolute Monocytes 0.75 Absolute Eosinophils 0.26 Absolute Basophils 0.04 VBG Lactate 2.2 H* Sodium 141 Potassium 3.5 Chloride 106 Carbon Dioxide 24.6 Anion Gap 10.4 BUN 12 Creatinine 1.0 Estimated GFR/1.73 m2 >= 60.00 Glucose 145 H Calcium 8.1 L Magnesium 2.1 Total Bilirubin 0.2 AST 42 H ALT 75 H Alkaline Phosphatase 126 H C-Reactive Protein 8.64 H Total Protein 6.8 Albumin 3.0 L Urine Color Urine Clarity Urine pH Ur Specific Acme Urine Protein Urine Ketones Urine Blood Urine Nitrite Urine Bilirubin Urine Urobilinogen Ur Leukocyte Esterase Urine RBC Urine WBC Ur Epithelial Cells Urine Crystals Urine Bacteria Urine Mucus Urine Other Ur Culture Indicated? Urine Glucose COVID-19 Source 03/28/21 03/28/21 03/28/21 08:30 08:50 09:38 WBC RBC Hgb Hct MCV MCH MCHC RDW Plt Count MPV Immature Gran % Neutrophils % Lymphocytes % Monocytes % Eosinophils % Basophils % Nucleated RBC % Absolute Neutrophils Absolute Lymphocytes Absolute Monocytes Absolute Eosinophils Absolute Basophils VBG Lactate Sodium Potassium Chloride Carbon Dioxide Anion Gap BUN Creatinine Estimated GFR/1.73 m2 Glucose Calcium Magnesium Total Bilirubin AST ALT Alkaline Phosphatase C-Reactive Protein Cancelled Total Protein Albumin Urine Color Yellow Urine Clarity Cloudy Urine pH 6.5 Ur Specific Acme 1.020 Urine Protein 30 H Urine Ketones Negative Urine Blood Moderate H Urine Nitrite Positive H Urine Bilirubin Negative Urine Urobilinogen 0.2 Ur Leukocyte Esterase Moderate H Urine RBC Urine WBC >50 H Ur Epithelial Cells Rare Urine Crystals Not Applicable Urine Bacteria Moderate Urine Mucus Not Applicable Urine Other Few Renal Ur Culture Indicated? Yes Urine Glucose Negative COVID-19 Source Nasal/Nares HPI General Mode of arrival: ambulatory . Date/Time Provider Initiated Documentation: 03/28/21 08:14 . Limitations to Documentation: no limitations . Information obtained by: patient . History of Present Illness described as mild, Quality is described as dull, and is localized to the head. Patient reports no radiation. Patient started experiencing this hour(s) and it has been constant. No relieving factors improve symptom(s), No exacerbating factors reported . Patient notes fever/chills and headaches. Patient did receive the following treatments prior to arrival, none Related Data Home Medications Medication Instructions Recorded Confirmed sildenafil 50 mg tablet 25 - 50 mg PO DAILY PRN #10 tab 04/09/20 03/28/21 sucralfate 1 gram tablet 1 g PO BID #180 tab-cap 07/27/20 03/28/21 venlafaxine 37.5 mg 37.5 mg PO DAILY #90 tab-cap 08/29/20 03/28/21 capsule,extended release 24 hr esomeprazole magnesium 40 mg 40 mg PO DAILY #90 tab-cap 03/25/21 03/28/21 capsule,delayed release ciprofloxacin HCl [Cipro] 500 mg PO BID 7 Days #14 tab 03/28/21 Previous Rx's Medication Instructions Recorded sildenafil 50 mg tablet 25 - 50 mg PO DAILY PRN #10 tab 04/09/20 sucralfate 1 gram tablet 1 g PO BID #180 tab-cap 07/27/20 venlafaxine 37.5 mg 37.5 mg PO DAILY #90 tab-cap 08/29/20 capsule,extended release 24 hr esomeprazole magnesium 40 mg 40 mg PO DAILY #90 tab-cap 03/25/21 capsule,delayed release ciprofloxacin HCl [Cipro] 500 mg PO BID 7 Days #14 tab 03/28/21 Allergies Allergy/AdvReac Type Severity Reaction Status Date / Time iohexol [From Omnipaque] Allergy Intermediate Skin Rash Unverified 03/28/21 08:17 General Stated Complaint: Fever SANJUANA: 3 Review of Systems Narrative: Frontal headache, joint ache, body ache. Dry cough. Fever and chills. No vomiting, no change to taste, denies abdominal pain, no urinary changes. 8 systems reviewed and otherwise negative. No known sick contacts. [facility] Medical History (Updated 03/28/21 @ 10:23 by Steven Rosales MD) Depression (06/01/13) GERD (gastroesophageal reflux disease) Obstructive sleep apnea syndrome in adult (07/27/13) Surgical History EYE SURGERY Family History Mother No problems noted. Sister No problems noted. Son No problems noted. Social History Smoking/Tobacco Use Status: Never Smoking risk assessment performed?: Yes Alcohol Intake: never Drug use: Never Substance use type: does not use Household members: significant other Housing: house Communication Needs: None Pets and animals: Yes Pets and animals: dog(s) Sexually active: Yes Do you think of yourself as: straight/heterosexual Current gender identity: female What is your relationship status?: living with partner How often do you attend quaker or zoroastrianism services?: 1-3 times per year Do you belong to any clubs or organized social groups?: no Panel score (0-1 are the most socially isolated patients): 1 What type of physical activity do you participate in: additional Details: Working [employer]/Jeh[employer] Witness: Judaism Seatbelt use: always Drive intox 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 Pleasant, well groomed, interactive. HEAD: Normocephalic, atraumatic ENT: Mucous membranes moist, oropharynx unremarkable, External ear exam unremarkable EYES: PERRL, EOMI NECK: Full ROM, no JOY, no menigismus CHEST/RESP: Nontender, clear to auscultation bilateral, no wheeze/rhonchi/rales CARDIOVASCULAR: RRR, no murmur, rub neville. 2+ Rad pulse bilateral ABDOMEN: Soft, nontender, no mass. +Bowel sounds EXT: Full ROM, no edema, no rash Neuro: Grossly normal neurologic exam, conversant, interactive. Psych: Speech fluent, thoughts congruent, affect normal Course Vital Signs Vital signs: Vital Signs Temperature 36.5 C 03/28/21 08:12 Pulse 85 03/28/21 08:12 Respiratory Rate 18 03/28/21 08:12 Blood Pressure 154/88 H 03/28/21 08:12 Pulse Oximetry 97 03/28/21 08:12 Temperature 36.5 C 03/28/21 08:12 Temperature Source Oral 03/28/21 08:12 Pulse 85 03/28/21 08:12 Respiratory Rate 18 03/28/21 08:12 Respiratory Effort Non-Labored 03/28/21 08:21 Blood Pressure 154/88 H 03/28/21 08:12 Blood Pressure Position Sitting 03/28/21 08:12 Pulse Oximetry 97 03/28/21 08:12 Oxygen Delivery Method Room Air 03/28/21 08:12 Oxygen Flow Rate 0 03/28/21 08:12 Lab/Test Results Lab/Test Results: 03/28/21 08:24 Blood Blood Culture - Pending 03/28/21 08:24 Blood Blood Culture - Pending
[2021-03-28 08:49] LABS: Abs Immature Grans 0.03 10^3/uL (0.0-0.06); Absolute Basophil Count 0.04 10^3/uL (0.0-0.2); Absolute Eosinophil Count 0.26 10^3/uL (0.0-0.7); Absolute Lymphocyte Count 0.86 10^3/uL (1.2-3.4); Absolute Monocyte Count 0.75 10^3/uL (0.1-0.8); Absolute Neutrophil Count 4.71 10^3/uL (1.2-6.7); Basophils % 0.6; Eosinophils % 3.9; HCT 41.4 % (40.0-50.0); HGB 13.7 g/dL (13.5-17.5); Immature Grans % 0.5; Lymphocytes % 12.9; MCH 28.8 pg (27.0-33.0); MCHC 33.1 % (32.0-36.0); MPV 9.8 fL (8.0-11.0); Monocytes % 11.3; Neutrophils % 70.8; Nucleated RBC 0 %; Platelet Count 290 10^3/uL (130-400); RBC 4.76 10^6/uL (4.36-5.78); RDW 14.6 % (11.8-14.1); RDW-SD 46.9 fL; WBC 6.65 10^3/uL (4.4-10.8)
[2021-03-28 08:51] LABS: Lactate 2.2 mmol/L (0.6-1.4)
[2021-03-28] MEDS: Normal Saline 1,000 ML 1000 ML IV (08:53)
[2021-03-28 08:56] LABS: Bilirubin Negative (Negative); Blood Moderate (Negative); Clarity Cloudy (Clear); Glucose Negative (Negative); Ketones Negative (Negative); Leukocyte Esterase Moderate (Negative); Nitrite Positive (Negative); Urobilinogen 0.2 EU/dL (Up TO 0.2); pH 6.5 (5-8)
[2021-03-28 09:03] LABS: Bacteria Moderate HPF (Negative); Epithelial Cells Rare HPF (Negative); Other Cells Few Renal (Negative); WBC >50 HPF (0-5)
[2021-03-28 09:03] LABS: ALT 75 U/L (16-63); AST 42 U/L (15-37); Alkaline Phosphatase 126 U/L (46-116); Anion Gap 10.4 mmol/L (3-11); BUN 12 mg/dL (7-18); Bilirubin, Total 0.2 mg/dL (0.2-1.0); C-Reactive Protein 8.64 mg/dL (0.0-0.3); CO2 24.6 mmol/L (21.0-32.0); Calcium 8.1 mg/dL (8.5-10.1); Chloride 106 mmol/L (98-107); Glucose 145 mg/dL (74-106); Magnesium 2.1 mg/dL (1.8-2.4); Potassium 3.5 mmol/L (3.5-5.1); Sodium 141 mmol/L (136-145); Total Protein 6.8 g/dL (6.4-8.2)
[2021-03-28 09:04] LABS: C & S Indicated? Yes
[2021-03-28] MEDS: cefTRIAXone 1 GM/50 ML BAG IVPB (09:35)
[2021-03-28 09:58] LABS: Source Nasal/Nares
[2021-03-28 10:07] VITALS: BP 128/82; PULSE 67; RESP 18; TEMP 36.4; O2SAT 97
[2021-03-28 11:08] LABS: Lactate 0.9 mmol/L (0.6-1.4)
[2021-03-28 11:23] LABS: COVID-19 PCR Negative (Negative)
[2021-03-28 11:33] LABS: Lactate 0.9 mmol/L (0.6-1.4)
[2021-03-28 11:59] VITALS: BP 148/90; PULSE 67; TEMP 36.1; O2SAT 98
[2021-03-29 11:34] LABS: Lyme Ab w Rflx to Lyme Confirm Negative (Negative)
[2021-03-29 22:17] LABS: Anaplasma phagocytophilum Negative (Negative); B. miyamotoi PCR Negative (Negative); Babesia divergens/MO-1 Negative (Negative); Babesia duncani Negative (Negative); Babesia microti Negative (Negative); Ehrlichia chaffeensis Negative (Negative); Ehrlichia ewingii/canis Negative (Negative); Ehrlichia muris eauclairensis Negative (Negative)
== END 2021-03-28 14:09 | disposition home or self-care (01) ==
PROVIDERS: Emergency Provider Emergency Medicine; PCP Family Medicine
DX: N30.90 Cystitis, unspecified without hematuria (principal); B96.89 Other specified bacterial agents as the cause of diseases classified elsewhere
CPT/HCPCS: 36415; 80053; 87040; 87077; 87635; 87798; 96361; 96365; 99284; 70450; 70486; 71046; 81003; 81015; 83605; 83735; 85025; 86140; 86618; 87086; 87186; J0696

== ENCOUNTER 2021-04-14 19:58 | Emergency (ER) | payer OTHER, SELFPAY ==
[2021-04-14 20:15] VITALS: BP 172/105; PULSE 94; RESP 20; TEMP 36.9; O2SAT 96
--- NOTE | 2021-04-14 20:25 | W.ED.GENAD ---
Discharge Plan Disposition Patient Disposition: HOME Condition: Stable Discharge Details Clinical Impression: Acute epididymo-orchitis, Acute UTI Primary Care Provider: Laurel Rodriguez ED Provider: Steven Rosales Home Meds and New Rx's Prescriptions: New amoxicillin-pot clavulanate 875-125 mg tablet 1 tab PO BID 10 Days Qty: 20 RF: 0 Continued sildenafil 50 mg tablet 25 - 50 mg PO DAILY PRN (Reason: sexual activity) Qty: 10 RF: 0 sucralfate 1 gram tablet 1 g PO BID Qty: 180 RF: 4 venlafaxine 37.5 mg capsule,extended release 24hr 37.5 mg PO DAILY Qty: 90 RF: 4 esomeprazole magnesium [Nexium] 40 mg capsule,delayed release(DR/EC) 40 mg PO DAILY Qty: 90 RF: 2 Discontinued ciprofloxacin HCl 500 mg tablet 500 mg PO BID RF: 0 Discharge Instructions Instructions: Epididymitis (ED), Urinary Tract Infection in Men (ED) Additional Instructions: Home to rest tonight. Parasol, intermittent sips of fluids to maintain hydration. Return in the morning approximately 7:30 AM for recheck and for ultrasound. Take Augmentin at approximately 6 AM. Medical Decision Making 61-year-old male seen by me on March 28 for prostatitis for which she was treated with ciprofloxacin and improved. Has had normal urination, erection and ejaculate. Now with onset approximately 2 AM of left testicular pain and swelling. No fever, no symptoms as above. The patient's urine culture from March 28 grew antibiotic sensitive E. coli. On exam, swollen and tender along the left superior testicle and scrotum, as well as mild left lower quadrant tenderness. Urinalysis and screening labs obtained, patient referred for CT imaging without contrast due to allergy. Patient CT reveals fat stranding along the left ureter and evidence of cystitis. No evidence of obstructing stones. Patient has evidence of urinary tract infection with elevated white blood cell count greater than 50 white blood cells per high-powered field with many bacteria present. I did perform rectal exam with mild tenderness of the prostate present. Most consistent with cystitis and probably epididymoorchitis. Patient given Unasyn and I will have him take Augmentin at home in 6 hours. He will return in the morning for reevaluation and ultrasound of the testes. He has freestanding follow-up with Dr. Persaud in clinic on the . I will provide him with a prescription for Augmentin prior to discharge this evening. HPI General Mode of arrival: ambulatory. Date/Time Provider Initiated Documentation: 04/14/21 20:01. Limitations to Documentation: no limitations. Information obtained by: patient. History of Present Illness 61 year old M presents to the emergency department with the chief complaint of Left scrotal swelling since approximately 2 AM, described as moderate, Quality is described as dull and constant, and is localized to the genitals and left. Patient started experiencing this hour(s) and it has been constant. No relieving factors improve symptom(s), No exacerbating factors reported . Patient notes denies fever/chills and nausea/vomiting. Patient did receive the following treatments prior to arrival, none Related Data Home Medications Medication Instructions Recorded Confirmed sildenafil 50 mg tablet 25 - 50 mg PO DAILY PRN #10 tab 04/09/20 04/14/21 sucralfate 1 gram tablet 1 g PO BID #180 tab-cap 20 04/14/21 venlafaxine 37.5 mg 37.5 mg PO DAILY #90 tab-cap 08/29/20 04/14/21 capsule,extended release 24 hr esomeprazole magnesium 40 mg 40 mg PO DAILY #90 tab-cap 03/25/21 04/14/21 capsule,delayed release amoxicillin-pot clavulanate 1 tab PO BID 10 Days #20 tab 04/14/21 Previous Rx's Medication Instructions Recorded sildenafil 50 mg tablet 25 - 50 mg PO DAILY PRN #10 tab 04/09/20 sucralfate 1 gram tablet 1 g PO BID #180 tab-cap 07/27/20 venlafaxine 37.5 mg 37.5 mg PO DAILY #90 tab-cap 08/29/20 capsule,extended release 24 hr esomeprazole magnesium 40 mg 40 mg PO DAILY #90 tab-cap 03/25/21 capsule,delayed release amoxicillin-pot clavulanate 1 tab PO BID 10 Days #20 tab 04/14/21 Allergies Allergy/AdvReac Type Severity Reaction Status Date / Time iohexol [From Omnipaque] Allergy Intermediate Skin Rash Unverified 04/14/21 20:24 General Stated Complaint: Male Reproductive Problem SAN[place]: 3 Review of Systems Narrative: Normal erection and ejaculate today. Normal urination. No fever. Mild lower abdominal pain. No nausea or vomiting. 8 systems reviewed and otherwise negative. [facility] Medical History (Updated 04/14/21 @ 22:02 by Steven Rosales MD) Depression (06/01/13) GERD (gastroesophageal reflux disease) Obstructive sleep apnea syndrome in adult (07/27/13) Surgical History EYE SURGERY Family History Mother No problems noted. Sister No problems noted. Son No problems noted. Social History Smoking/Tobacco Use Status: Former Tobacco Use Smoking risk assessment performed?: Yes Alcohol Intake: never Drug use: Never Substance use type: does not use Household members: significant other Housing: house Communication Needs: None Pets and animals: Yes Pets and animals: dog(s) Sexually active: Yes Do you think of yourself as: straight/heterosexual Current gender identity: female What is your relationship status?: living with partner How often do you attend voodoo or nondenominational services?: 1-3 times per year Do you belong to any clubs or organized social groups?: no Panel score (0-1 are the most socially isolated patients): 1 What type of physical activity do you participate in: additional Details: Working Marleny/Anabaptism: Hindu Seatbelt use: always Drive intox or ride w/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 Pleasant, well groomed, interactive. HEAD: Normocephalic, atraumatic ENT: Mucous membranes moist, oropharynx unremarkable, External ear exam unremarkable EYES: PERRL, EOMI NECK: Full ROM, no JOY, no menigismus CHEST/RESP: Nontender, clear to auscultation bilateral, no wheeze/rhonchi/rales CARDIOVASCULAR: RRR, no murmur, rub neville. 2+ Rad pulse bilateral ABDOMEN: Soft, minimal left lower quadrant tenderness to palpation, no mass. Testes descended bilaterally. Left scrotal swelling, palpable testicles are nontender right, tender left and tender along the upper margin with swelling on the left testicle +[place] minimal, discrete supraumbilical tenderness without rebound or guarding. EXT: Full ROM, no edema, no rash Neuro: Grossly normal neurologic exam, conversant, interactive. Psych: Speech fluent, thoughts congruent, affect normal Course Vital Signs Vital signs: Vital Signs Temperature 36.9 C 04/14/21 20:15 Pulse 94 H 04/14/21 20:15 Respiratory Rate 20 04/14/21 20:15 Blood Pressure 172/105 H 04/14/21 20:15 Pulse Oximetry 96 04/14/21 20:15 Temperature 36.9 C 04/14/21 20:15 Temperature Source Oral 04/14/21 20:15 Pulse 94 H 04/14/21 20:15 Respiratory Rate 20 04/14/21 20:15 Blood Pressure 172/105 H 04/14/21 20:15 Blood Pressure Position Sitting 04/14/21 20:15 Pulse Oximetry 96 04/14/21 20:15 Oxygen Delivery Method Room Air 04/14/21 20:15 Oxygen Flow Rate 0 04/14/21 20:15 Pain Level 8 04/14/21 20:15
[2021-04-14 20:45] LABS: Lactate 1.2 mmol/L (0.6-1.4)
[2021-04-14 20:46] LABS: Abs Immature Grans 0.04 10^3/uL (0.0-0.06); Absolute Basophil Count 0.05 10^3/uL (0.0-0.2); Absolute Lymphocyte Count 1.53 10^3/uL (1.2-3.4); Basophils % 0.4; Eosinophils % 2.5; HCT 40.9 % (40.0-50.0); HGB 13.6 g/dL (13.5-17.5); Immature Grans % 0.3; Lymphocytes % 12.9; MCH 28.9 pg (27.0-33.0); MCHC 33.3 % (32.0-36.0); MCV 86.8 fL (80-95); MPV 9.7 fL (8.0-11.0); Monocytes % 10.1; Neutrophils % 73.8; Nucleated RBC 0 %; Platelet Count 359 10^3/uL (130-400); RBC 4.71 10^6/uL (4.36-5.78); RDW 14.2 % (11.8-14.1); RDW-SD 45.4 fL; WBC 11.83 10^3/uL (4.4-10.8)
--- NOTE | 2021-04-14 20:46 | DI.CT_ITS ---
Exam(s) CT ABDOMEN PELVIS WO EXAM: CT ABDOMEN PELVIS WO CLINICAL HISTORY: recent prostatitis, low abd and L testicle pain. TECHNIQUE: Imaging Protocol: Axial computed tomography images with coronal and sagittal reformatted images were created and reviewed. Oral: no COMPARISON: CT CHEST WITH CONTRAST from 10/26/2014 FINDINGS: ABDOMEN: Lung Bases: Normal where visualized. Liver: Enlarged. Moderate fatty infiltration. Multiple low-density lesions, unchanged from prior ch est CT, consistent with cysts. Gallbladder and biliary tract: No radiodense calculus or dilation. Pancreas: Normal density, no abnormal calcifications or inflammatory process. Spleen: Normal. Kidneys: Normal size, contour and axis. Tiny nonobstructing stone lower pole right kidney. Minimal stranding around distal left ureter. No ureteral stone. Adrenal glands: No masses seen. Lymph nodes: Within normal limits. Abdominal Aorta: Abdominal portion non-dilated. PELVIS: Bladder: Nearly empty. Question of wall thickening. Bowel: No obstruction or bowel wall thickening. Appendix normal. Peritoneal cavity: No ascites, collection or mesenteric inflammatory response. Reproductive organs: Small left hydrocele. Question of scrotal skin thickening on the left. Prostat e within normal limits. Bones: Degenerative changes, greatest at L4-5.. Soft tissues: Large amount of fat extends into to both inguinal canal down to the level of the scrotu m. IMPRESSION: Bilateral fatty containing inguinal hernias. Nonobstructing stone lower pole right kidney. Mild kandi unt of stranding around the distal left ureter without visible calculus. Question of cystitis versus under distention of the bladder. RADIATION DOSE DELIVERED: 2,892.29mGy.cm Total DLP DATA REPOSITORY: All CT scans at this facility are submitted to the National Radiology Data Registry (NRDR) Dose Index Registry (DIR) with the [employer] (A[employer]). RADIATION OPTIMIZATION: All CT scans at this facility use at least one of these dose optimization te chniques: automated exposure control; mA and/or kV adjustment per patient size (includes targeted exa ms where dose is matched to clinical indication); or iterative reconstruction.
[2021-04-14 21:01] LABS: Absolute Monocyte Count 1.19 10^3/uL (0.1-0.8); Absolute Neutrophil Count 8.73 10^3/uL (1.2-6.7)
[2021-04-14 21:05] LABS: Bilirubin Negative (Negative); Blood Trace-intact (Negative); Clarity Clear (Clear); Glucose Negative (Negative); Ketones Negative (Negative); Leukocyte Esterase Trace (Negative); Nitrite Negative (Negative)
[2021-04-14 21:13] LABS: Bacteria Many HPF (Negative); C & S Indicated? Yes; Casts Negative LPF (Negative); Crystals Negative HPF (Negative); Epithelial Cells Negative HPF (Negative); Mucus Negative (Negative); Other Cells Negative (Negative); RBC Negative HPF (0-2); WBC >50 HPF (0-5)
[2021-04-14 21:14] LABS: ALT 32 U/L (16-63); AST 20 U/L (15-37); Albumin 3.6 g/dL (3.4-5.0); Alkaline Phosphatase 112 U/L (46-116); Anion Gap 6.6 mmol/L (3-11); BUN 13 mg/dL (7-18); Bilirubin, Total 0.3 mg/dL (0.2-1.0); CO2 27.4 mmol/L (21.0-32.0); CREATININE 0.9 mg/dL (0.70-1.30); Calcium 8.7 mg/dL (8.5-10.1); Chloride 105 mmol/L (98-107); Glucose 133 mg/dL (74-106); Potassium 3.9 mmol/L (3.5-5.1); Sodium 139 mmol/L (136-145); Total Protein 7.1 g/dL (6.4-8.2)
[2021-04-14 21:40] VITALS: BP 144/72; PULSE 84; RESP 18; O2SAT 96
--- NOTE | 2021-04-14 21:41 | DI.VRAD_ITS ---
PROCEDURE INFORMATION: Exam: CT Abdomen And Pelvis Without Contrast Exam date and time: 04/14/2021 9:01 PM Age: 61 years old Clinical indication: Abdominal pain and other: L testicle pain; Patient HX: Recent prostatitis. Low abd pain, left testicle pain TECHNIQUE: Imaging protocol: Computed tomography of the abdomen and pelvis without contrast. Radiation optimization: All CT scans at this facility use at least one of these dose optimization techniques: automated exposure control; mA and/or kV adjustment per patient size (includes targeted exams where dose is matched to clinical indication); or iterative reconstruction. COMPARISON: US ABDOMEN ULTRASOUND (P) 04/06/2015 6:13 PM FINDINGS: Lungs: Lung bases are clear. Liver: Limited noncontrast liver imaging. Probable hepatic cysts. Gallbladder and bile ducts: Normal. No calcified stones. No ductal dilation. Pancreas: Normal. No ductal dilation. Spleen: Normal. No splenomegaly. Adrenal glands: Normal. No mass. Kidneys and ureters: Negative for hydronephrosis. Negative for perinephric fat stranding. 2 mm nonobstructing stone noted on the right. Ureters are not dilated. Focal fat stranding is observed around the left ureter, adjacent to the iliac vessels, axial image number 74. Stomach and bowel: Stomach is unremarkable. Small bowel is not dilated. There are no inflammatory changes around the colon. No significant diverticular disease. Appendix: Normal appendix. Intraperitoneal space: Mild central mesenteric fat stranding noted. Negative for free fluid or free air. Vasculature: Negative for aneurysm. Mild vascular calcifications. Lymph nodes: No significant mesenteric or retroperitoneal lymphadenopathy. Urinary bladder: Urinary bladder is collapsed. Tissue planes around the bladder are indistinct, and fluid in the bladder is hyperattenuating. Reproductive: Prominent fat noted in the inguinal canals bilaterally, extending into the scrotum. Negative for fluid collection in the abdominal wall. Bones/joints: Moderate degenerative disc disease and facet arthropathy noted L4-L5 and L5-S1. Moderate-severe bilateral neural foraminal narrowing present at these levels. No evidence of compression fracture. Soft tissues: Negative for abdominal wall hematoma. IMPRESSION: 1. Abnormal urinary bladder. Question cystitis. 2. Negative for hydronephrosis. Negative for obstructing stones. Nonspecific fat stranding noted around the mid left ureter. Dictated and Authenticated by: Diego Persaud MD. Ordering:DANIEL Harris MD
[2021-04-14 21:58] LABS: Lipase 85 U/L (73-393)
[2021-04-14] MEDS: AMPICILLIN/SULBACTAM 3 GM in Normal Saline 100 ML IVPB (22:17)
[2021-04-14 22:50] VITALS: BP 115/70; PULSE 88; RESP 18; TEMP 36.9; O2SAT 95
[2021-04-14] MEDS: Amox. 875/Clav. 125, 2 TABS/BTL 1 TAB PO (23:03)
== END 2021-04-14 23:00 | disposition home or self-care (01) ==
PROVIDERS: Emergency Provider Emergency Medicine; PCP Family Medicine
DX: N45.3 Epididymo-orchitis (principal); N39.0 Urinary tract infection, site not specified; B96.20 Unspecified Escherichia coli [E. coli] as the cause of diseases classified elsewhere
CPT/HCPCS: 36415; 80053; 83690; 87077; 96365; 99284; 74176; 81003; 81015; 83605; 85025; 87086; 87186; J0295

== ENCOUNTER 2021-04-15 07:17 | Emergency (ER) | payer OTHER, SELFPAY ==
[2021-04-15 07:20] VITALS: BP 132/87; PULSE 94; RESP 16; TEMP 36.6; O2SAT 96
--- NOTE | 2021-04-15 07:32 | NUR.NOTE ---
Exam done by provider. See provider notes.
--- NOTE | 2021-04-15 07:45 | DI.US_ITS ---
Exam(s) US SCROTUM EXAM: US SCROTUM CLINICAL HISTORY: testicular pain, swelling. TECHNIQUE: Scrotal ultrasound performed using grayscale, color-flow and spectral Doppler analysis. COMPARISON: CT CT ABDOMEN PELVIS WO from 04/14/[address] ABDOMEN PELVIS WO from 04/14/2021 FINDINGS: Right testicle: 3.1 x 1.9 x 2.8 cm Left testicle: 3.7 x 2.7 x 3.4 cm. Echogenicity: Normal. Contour: Smooth. Mass: None seen. Left tunica albuginea cyst. Mildly dilated rete testes. Microlithiasis: None. Hydrocele: Small left. Variocele: None. Hernia: Prominent fat in both inguinal canals extending into scrotum. No peristalsing bowel loop tino ntified. Epididymis: Right: Normal. Left: Hyperemia. DOPPLER: Color: Right normal. Left hyperemia to testicle and epididymis. Duplex: Bilateral testicular arterial waveforms visualized. IMPRESSION: Left epididymal orchitis. Bilateral fatty containing inguinal hernias. DATA REPOSITORY:
--- NOTE | 2021-04-15 07:57 | ED.GENADUL_ITS ---
Discharge Plan Disposition Patient Disposition: HOME Condition: Stable Discharge Details Clinical Impression: Orchitis and epididymitis, Bilateral inguinal hernia Primary Care Provider: Laurel Rodriguez ED Provider: Sheela Simental Home Meds and New Rx's Prescriptions: New levofloxacin 500 mg tablet 500 mg PO DAILY Qty: 9 RF: 0 Continued sildenafil 50 mg tablet 25 - 50 mg PO DAILY PRN (Reason: sexual activity) Qty: 10 RF: 0 sucralfate 1 gram tablet 1 g PO BID Qty: 180 RF: 4 venlafaxine 37.5 mg capsule,extended release 24hr 37.5 mg PO DAILY Qty: 90 RF: 4 esomeprazole magnesium [Nexium] 40 mg capsule,delayed release(DR/EC) 40 mg PO DAILY Qty: 90 RF: 2 Discontinued amoxicillin-pot clavulanate 875-125 mg tablet 1 tab PO BID 10 Days Qty: 20 RF: 0 Discharge Instructions Instructions: Levofloxacin (By mouth), Epididymo-Orchitis (ED) Additional Instructions: Please return immediately to the emergency department if you develop any new or worsening symptoms, if your condition does not improve as expected, or if you become otherwise concerned. It is extremely important that you attend your scheduled follow-up appointments with your primary care doctor (04/17) and urology (04/30). Referrals: Laurel Rodriguez MD [Primary Care Provider] - Bruce Persaud MD [ [facility] STAFF PHYSICIAN] - Medical Decision Making Umesh Dyson is a 61 y/o man with history of GERD, obstructive sleep apnea who presented to the emergency department for left testicular pain and swelling, seen here last night for same and started on Augmentin, referred to follow-up this morning in the ED for further ultrasound. Patient reports that pain has improved since receiving antibiotics last night. On exam there is edema and tenderness palpation of the left testicle without scrotal edema, overlying skin changes of the scrotum, no tenderness or rash to the perineum, normal examination of the penis. Concern for likely orchitis, epididymoorchitis. Exam/history at this time is not consistent with Comfort's gangrene, systemic toxicity/sepsis, pyelonephritis, prostatitis. Plan for screening labs for comparison to prior, ultrasound. Will monitor and reassess. Ultrasound shows orchitis, bilateral fatty inguinal hernias. I discussed patient presentation results with Dr. Persaud, including left ureter inflammation noted on CT scan obtained yesterday. Dr. Persaud reviewed images, agrees with continued outpatient treatment for orchitis, E. coli is likely pathogen given recent cultures, recommended switch from Augmentin to Levaquin. No further acute intervention recommended at this time. Patient does have follow-up scheduled with urology for 04/30, and has follow-up with his PCP 04/17. Unlikely gono rrhea/chlamydia, however will send cultures. Sided inguinal hernias noted without loops of bowel, exam/history is not consistent with incarcerated bowel containing hernia. I had a lengthy discussion with Patient regarding return to emergency department precautions, home care, and importance of outpatient follow-up. Pt verbalizes understanding of the plan and is amenable. Patient discharged to home with clear plan for outpatient follow-up. All questions were answered. Disposition decision was made weighing the risks and benefits of hospitalization versus outpatient treatment, the risk for further decompensation, and the patient's wishes. Medical Records Medical records reviewed: Yes I reviewed the patient's medical records. Imaging Data Radiologic Study: Attestation: I personally reviewed and interpreted this imaging study as follows: Radiologist's impression: EXAM: US SCROTUM CLINICAL HISTORY: testicular pain, swelling. TECHNIQUE: Scrotal ultrasound performed using grayscale, color-flow and spectral Doppler analysis. COMPARISON: CT CT ABDOMEN PELVIS WO from 04/14/[address] ABDOMEN PELVIS WO from 04/14/2021 FINDINGS: Right testicle: 3.1 x 1.9 x 2.8 cm Left testicle: 3.7 x 2.7 x 3.4 cm. Echogenicity: Normal. Contour: Smooth. Mass: None seen. Left tunica albuginea cyst. Mildly dilated rete testes. Microlithiasis: None. Hydrocele: Small left. Variocele: None. Hernia: Prominent fat in both inguinal canals extending into scrotum. No peristalsing bowel loop identified. Epididymis: Right: Normal. Left: Hyperemia. DOPPLER: Color: Right normal. Left hyperemia to testicle and epididymis. Duplex: Bilateral testicular arterial waveforms visualized. IMPRESSION: Left epididymal orchitis. Bilateral fatty containing inguinal hernias. Lab Data Lab results reviewed: Yes I reviewed the patient's lab results. Labs: 04/15/21 09:18 Blood Blood Culture - Pending 04/15/21 08:47 Urine - Reflex from Ua Urine Culture - Pending 04/15/21 08:54 Blood Blood Culture - Pending Laboratory Tests Range/Units 04/15/21 04/15/21 04/15/21 08:47 08:54 08:54 WBC (4.4-10.8) 10^3/uL RBC (4.36-5.78) 10^6/uL Hgb (13.5-17.5) g/dL Hct (40.0-50.0) % MCV (80-95) fL MCH (27.0-33.0) pg MCHC (32.0-36.0) % RDW (11.8-14.1) % Plt Count (130-400) 10^3/uL MPV (8.0-11.0) fL Immature Gran % Neutrophils % Lymphocytes % Monocytes % Eosinophils % Basophils % Nucleated RBC % % Absolute Neutrophils (1.2-6.7) 10^3/uL Absolute Lymphocytes (1.2-3.4) 10^3/uL Absolute Monocytes (0.1-0.8) 10^3/uL Absolute Eosinophils (0.0-0.7) 10^3/uL Absolute Basophils (0.0-0.2) 10^3/uL VBG Lactate (0.6-1.4) mmol/L 1.0 Sodium (136-145) mmol/L 140 Potassium (3.5-5.1) mmol/L 4.3 Chloride (98-107) mmol/L 104 Carbon Dioxide (21.0-32.0) mmol/L 29.6 Anion Gap (3-11) mmol/L 6.4 BUN (7-18) mg/dL 17 Creatinine (0.70-1.30) mg/dL 0.8 Estimated GFR/1.73 m2 (mL/min/1.73m2) >= 60.00 Glucose (74-106) mg/dL 109 H Calcium (8.5-10.1) mg/dL 8.9 Urine Color (Yellow) Yellow Urine Clarity (Clear) Sl Cloudy Urine pH (5-8) 7.0 Ur Specific [place] (1.005-1.025) 1.025 Urine Protein (Negative) mg/dL Negative Urine Ketones (Negative) mg/dL Negative Urine Blood (Negative) Trace-intact H Urine Nitrite (Negative) Negative Urine Bilirubin (Negative) Negative Urine Urobilinogen (Up TO 0.2) EU/dL 0.2 Ur Leukocyte Esterase (Negative) Small H Urine RBC (0-2) HPF 5-10 H Urine WBC (0-5) HPF 20-50 H Ur Epithelial Cells (Negative) HPF Rare Urine Crystals (Negative) HPF Negative Urine Bacteria (Negative) HPF Rare Urine Casts (Negative) LPF Negative Urine Mucus (Negative) Trace Ur Culture Indicated? Yes Urine Glucose (Negative) mg/dL Negative Range/Units 04/15/21 08:54 WBC (4.4-10.8) 10^3/uL 13.98 H RBC (4.36-5.78) 10^6/uL 4.76 Hgb (13.5-17.5) g/dL 13.6 Hct (40.0-50.0) % 41.4 MCV (80-95) fL 87.0 MCH (27.0-33.0) pg 28.6 MCHC (32.0-36.0) % 32.9 RDW (11.8-14.1) % 14.5 H Plt Count (130-400) 10^3/uL 346 MPV (8.0-11.0) fL 9.6 Immature Gran % 0.4 Neutrophils % 79.8 Lymphocytes % 9.0 Monocytes % 9.1 Eosinophils % 1.3 Basophils % 0.4 Nucleated RBC % % 0 Absolute Neutrophils (1.2-6.7) 10^3/uL 11.16 H Absolute Lymphocytes (1.2-3.4) 10^3/uL 1.26 Absolute Monocytes (0.1-0.8) 10^3/uL 1.27 H Absolute Eosinophils (0.0-0.7) 10^3/uL 0.18 Absolute Basophils (0.0-0.2) 10^3/uL 0.06 VBG Lactate (0.6-1.4) mmol/L Sodium (136-145) mmol/L Potassium (3.5-5.1) mmol/L Chloride (98-107) mmol/L Carbon Dioxide (21.0-32.0) mmol/L Anion Gap (3-11) mmol/L BUN (7-18) mg/dL Creatinine (0.70-1.30) mg/dL Estimated GFR/1.73 m2 (mL/min/1.73m2) Glucose (74-106) mg/dL Calcium (8.5-10.1) mg/dL Urine Color (Yellow) Urine Clarity (Clear) Urine pH (5-8) Ur Specific [place] (1.005-1.025) Urine Protein (Negative) mg/dL Urine Ketones (Negative) mg/dL Urine Blood (Negative) Urine Nitrite (Negative) Urine Bilirubin (Negative) Urine Urobilinogen (Up TO 0.2) EU/dL Ur Leukocyte Esterase (Negative) Urine RBC (0-2) HPF Urine WBC (0-5) HPF Ur Epithelial Cells (Negative) HPF Urine Crystals (Negative) HPF Urine Bacteria (Negative) HPF Urine Casts (Negative) LPF Urine Mucus (Negative) Ur Culture Indicated? Urine Glucose (Negative) mg/dL HPI General Mode of arrival: ambulatory . Date/Time Provider Initiated Documentation: 04/15/21 07:47 . Limitations to Documentation: no limitations . Information obtained by: patient, RN notes reviewed and old records reviewed . HPI Narrative: Umesh Dyson is a 61-year-old man with history of GERD, obstructive sleep apnea presenting to emergency department with swollen testicle. Patient was seen here last night for same, from Dr. Rosales's note of last night visit: 61-year-old male seen by me on March 28 for prostatitis for which he was treated with ciprofloxacin and improved. Has had normal urination, erection and ejaculate. Now with onset approximately 2 AM of left testicular pain and swelling. No fever, no symptoms as above. The patient's urine culture from March 28 grew antibiotic sensitive E. coli. Patient underwent CT scan at last night's visit, showed possible cystitis and nonspecific stranding around the left ureter. Patient was treated with Unasyn and sent home on Augmentin for epididymo-orchitis, and told to return this morning for ultrasound. Patient reports that his left testicular swelling began yesterday as noted above, was quite painful. Patient reports that pain has improved somewhat since his ED visit last night which she received antibiotics, swelling persists. He reports mild suprapubic pain, denies any other pain. No fever, cough, shortness of breath, vomiting, diarrhea, constipation, dysuria, tenesmus, numbness, weakness, rash. Patient reports that prior to being diagnosed with prostatitis he has not had prostate infections, urinary tract infections, or testicular problems. Patient reports that he has had somewhat decreased appetite since yesterday secondary to overall not feeling particularly well, otherwise has been eating and drinking as usual. No cigarette use, rare alcohol use, no recreational drug use. Related Data Home Medications Medication Instructions Recorded Confirmed sildenafil 50 mg tablet 25 - 50 mg PO DAILY PRN #10 tab 04/09/20 04/15/21 sucralfate 1 gram tablet 1 g PO BID #180 tab-cap 20 04/15/21 venlafaxine 37.5 mg 37.5 mg PO DAILY #90 tab-cap 08/29/20 04/15/21 capsule,extended release 24 hr esomeprazole magnesium 40 mg 40 mg PO DAILY #90 tab-cap 03/25/21 04/15/21 capsule,delayed release levofloxacin 500 mg PO DAILY #9 tab 04/15/21 Previous Rx's Medication Instructions Recorded sildenafil 50 mg tablet 25 - 50 mg PO DAILY PRN #10 tab 04/09/20 sucralfate 1 gram tablet 1 g PO BID #180 tab-cap 07/27/20 venlafaxine 37.5 mg 37.5 mg PO DAILY #90 tab-cap 08/29/20 capsule,extended release 24 hr esomeprazole magnesium 40 mg 40 mg PO DAILY #90 tab-cap 03/25/21 capsule,delayed release levofloxacin 500 mg PO DAILY #9 tab 04/15/21 Allergies Allergy/AdvReac Type Severity Reaction Status Date / Time iohexol [From Omnipaque] Allergy Intermediate Skin Rash Unverified 04/15/21 07:24 General Stated Complaint: Male Reproductive Problem SANJUANA: 3 Review of Systems Narrative: Constitutional: denies fevers Eyes: denies eye pain ENT: denies ear pain, dental pain, sore throat Cardiovascular: denies chest pain, edema Respiratory: denies SOB, cough GI: denies abdominal pain, vomiting, diarrhea, constipation : denies flank pain, dysuria, penile discharge, reports left testicular pain and swelling, mild suprapubic pain MSK: denies back pain, neck pain, arthralgias, myalgias Skin: denies rash Neuro: denies headaches, numbness, weakness [facility] Medical History (Updated 04/15/21 @ 09:59 by Sheela Simental MD) Depression (06/01/13) GERD (gastroesophageal reflux disease) Obstructive sleep apnea syndrome in adult (07/27/13) Surgical History EYE SURGERY Family History Mother No problems noted. Sister No problems noted. Son No problems noted. Social History Smoking/Tobacco Use Status: Former Tobacco Use Smoking risk assessment performed?: Yes Alcohol Intake: never Drug use: Never Substance use type: does not use Household members: significant other Housing: house Communication Needs: None Pets and animals: Yes Pets and animals: dog(s) Sexually active: Yes Do you think of yourself as: straight/heterosexual Current gender identity: female What is your relationship status?: living with partner How often do you attend holiness or moravian services?: 1-3 times per year Do you belong to any clubs or organized social groups?: no Panel score (0-1 are the most socially isolated patients): 1 What type of physical activity do you participate in: additional Details: Working Marleny/Jehovah'S Witness: Spiritism Seatbelt use: always Drive intox or ride w/intox 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 transit bus 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: No Do you feel safe at home: Yes Do you feel safe in your relationship?: Yes Exam Narrative Exam Narrative: Constitutional: well and [id number], pleasant, conversing normally HENT: head atraumatic/normocephalic/normal inspection, mucous membranes moist Eyes: conjunctiva normal, sclera normal, pupils 3mm b/l Neck: no stridor, normal ROM, trachea midline Resp: normal work of breathing, speaking in full sentences Cardio: normal rate, normal rhythm GI: abdomen soft, mild suprapubic tenderness palpation, no other abdominal tenderness palpation, no rebound, no guarding, non-distended : Left testicle edematous, tender to palpation, no right testicular edema or tenderness, no scrotal edema, no skin changes of the scrotum, no significant inguinal lymphadenopathy, no rash or tenderness of the perineum, normal examination of the penis Skin: warm, dry, normal color, no rash Neuro: alert, not altered, grossly non-focal, normal tone Ext: no edema Psych: normal mood, normal affect, normal behavior Course Vital Signs Vital signs: Vital Signs Temperature 36.6 C 04/15/21 07:20 Pulse 94 H 04/15/21 07:20 Respiratory Rate 16 04/15/21 07:20 Blood Pressure 132/87 04/15/21 07:20 Pulse Oximetry 96 04/15/21 07:20 Temperature 36.6 C 04/15/21 07:20 Temperature Source Skin 04/15/21 07:20 Pulse 94 H 04/15/21 07:20 Respiratory Rate 16 04/15/21 07:20 Respiratory Effort 04/15/21 07:27 Blood Pressure 132/87 04/15/21 07:20 Pulse Oximetry 96 04/15/21 07:20 Oxygen Delivery Method Room Air 04/15/21 07:20 Oxygen Flow Rate 0 04/15/21 07:20 Pain Level 5 04/15/21 07:20
[2021-04-15 08:54] LABS: Bilirubin Negative (Negative); Blood Trace-intact (Negative); Clarity Sl Cloudy (Clear); Glucose Negative (Negative); Ketones Negative (Negative); Leukocyte Esterase Small (Negative); Nitrite Negative (Negative); Specific Gravity 1.025 (1.005-1.025); Urobilinogen 0.2 EU/dL (Up TO 0.2)
[2021-04-15 09:06] LABS: Abs Immature Grans 0.05 10^3/uL (0.0-0.06); Absolute Eosinophil Count 0.18 10^3/uL (0.0-0.7); Absolute Lymphocyte Count 1.26 10^3/uL (1.2-3.4); Absolute Monocyte Count 1.27 10^3/uL (0.1-0.8); Basophils % 0.4; Eosinophils % 1.3; HCT 41.4 % (40.0-50.0); HGB 13.6 g/dL (13.5-17.5); Immature Grans % 0.4; MCH 28.6 pg (27.0-33.0); MCHC 32.9 % (32.0-36.0); MPV 9.6 fL (8.0-11.0); Monocytes % 9.1; Neutrophils % 79.8; Nucleated RBC 0 %; Platelet Count 346 10^3/uL (130-400); RBC 4.76 10^6/uL (4.36-5.78); RDW 14.5 % (11.8-14.1); RDW-SD 46.4 fL; WBC 13.98 10^3/uL (4.4-10.8)
[2021-04-15 09:09] LABS: Absolute Basophil Count 0.06 10^3/uL (0.0-0.2); Absolute Neutrophil Count 11.16 10^3/uL (1.2-6.7)
[2021-04-15 09:11] LABS: Bacteria Rare HPF (Negative); Epithelial Cells Rare HPF (Negative); WBC 20-50 HPF (0-5)
[2021-04-15 09:12] LABS: C & S Indicated? Yes; Casts Negative LPF (Negative); Crystals Negative HPF (Negative); Mucus Trace (Negative)
[2021-04-15 09:20] LABS: Anion Gap 6.4 mmol/L (3-11); BUN 17 mg/dL (7-18); CO2 29.6 mmol/L (21.0-32.0); CREATININE 0.8 mg/dL (0.70-1.30); Calcium 8.9 mg/dL (8.5-10.1); Chloride 104 mmol/L (98-107); Glucose 109 mg/dL (74-106); Potassium 4.3 mmol/L (3.5-5.1); Sodium 140 mmol/L (136-145)
[2021-04-15] MEDS: Ibuprofen 600 MG TAB PO (09:36)
[2021-04-15] MEDS: levoFLOXacin 500 MG TAB PO (09:37)
[2021-04-16 15:40] LABS: Chlamydia Result Negative (Negative); GC Result Negative (Negative)
== END 2021-04-15 10:03 | disposition home or self-care (01) ==
PROVIDERS: Emergency Provider Student in an Organized Health Care Education/Training Program; PCP Family Medicine
DX: N45.3 Epididymo-orchitis (principal); K40.20 Bilateral inguinal hernia, without obstruction or gangrene, not specified as recurrent
CPT/HCPCS: 36415; 80048; 87040; 87491; 87591; 99284; 76870; 81003; 81015; 83605; 85025; 87086

== ENCOUNTER 2021-12-10 18:45 | Emergency (ER) | payer OTHER, SELFPAY ==
[2021-12-10 18:51] VITALS: BP 159/91; PULSE 79; RESP 18; TEMP 36.3; O2SAT 98
--- NOTE | 2021-12-10 19:45 | DI.RAD_ITS ---
Exam(s) XR ELBOW LT COMPLETE EXAM: XR ELBOW LT COMPLETE CLINICAL HISTORY: Laceration, R/O FB, Fracture. TECHNIQUE: 2D digital imaging was performed. COMPARISON: No exams were available for comparison FINDINGS: 3 views There is soft tissue injury with subcutaneous emphysema noted posteriorly subjacent to the olecranon. Radial head appears unremarkable. Capitellum unremarkable. Epicondyles unremarkable. No evidence of joint effusion. There are 3 small densities seen over the medial aspect of the joint, seen on the frontal view. On t he lateral view these probably correspond to posterior findings at the level of the laceration weekend anchor iorly. IMPRESSION: No fracture or joint effusion but there is deep subcutaneous air over the inferior aspect of the olec ranon. Also small foreign bodies at this level. Incidentally noted lower down in the volar-lateral mid forearm is a metallic density 2 millimeter for eign body in the deep subcutaneous tissues DATA REPOSITORY: RADIATION DOSE DELIVERED:
--- NOTE | 2021-12-10 19:57 | W.ED.GENAD ---
Discharge Plan Disposition Patient Disposition: HOME Condition: Stable Discharge Details Clinical Impression: Elbow fracture, left, Laceration of elbow, left Primary Care Provider: Amy Handy ED Provider: Monica White Home Meds and New Rx's Prescriptions: New cephalexin 500 mg tablet 500 mg PO BID 10 Days Qty: 20 0RF No Action sucralfate 1 gram tablet 1 g PO DAILY Qty: 90 1RF Rx Instructions: - take one capsule once a day/ not sent/decreased dose ibuprofen 200 mg tablet 400 mg PO BID PRN0RF venlafaxine 75 mg capsule,extended release 24hr 75 mg PO DAILY Qty: 30 4RF Rx Instructions: take one capsule daily trazodone 50 mg tablet 50 mg PO QHS Qty: 30 4RF esomeprazole magnesium [Nexium] 40 mg capsule,delayed release(DR/EC) 40 mg PO DAILY Qty: 90 2RF Discharge Instructions Instructions: Laceration (ED), Elbow Fracture (ED) Additional Instructions: The x-ray today shows questionable avulsion fracture to the elbow. Retained foreign body cannot be ruled out. The laceration was irrigated and cleaned with chlorhexidine by our staff. Steri-Strips were applied. Please keep clean and dry. Allowed to air dry 1 to 2 hours a day. Take the antibiotic as directed. Follow-up with orthopedic in the next 1 to 2 weeks. Use the sling for comfort. Follow up with primary care provider in 3-5 days. Return to ED sooner if any worsening or concerns. Increase oral fluids. Please take Tylenol or Ibuprofen with food every 4-6 hours as needed for pain and swelling. Stand Alone Forms: Work Release Referrals: Amy Handy MD [Primary Care Provider[facility]FF [facility]IC[facility]] - 1 week Medical Decision Making 61-year-old male presents to the ER after a mechanical fall off a porch just prior to arrival he reports he landed on his left elbow. He has full range of motion noted to his elbow. He has a approximately 1 cm star-shaped laceration noted to the posterior elbow. He is up-to-date on his tetanus vaccination 2018. X-rays ordered to rule out foreign body/fracture, topical let ordered, Due to the chance of infection wound was cleaned with chlorhexidine and Steri-Stripped. Questionable avulsion elbow fracture noted on V rad report. Patient was placed in a sling and discussed home care he verbalized understanding. Patient placed on cephalexin first given now and a to go bottle given. Discuss strict return instructions and follow-up with orthopedics he verbalizes understanding. Patient was given 1 g of Tylenol prior to discharge. This text was generated using Yooli dictation system, please disregard any oddities of phrase or misspellings. HPI General Mode of arrival: ambulatory. Date/Time Provider Initiated Documentation: 12/10/21 19:05. Limitations to Documentation: no limitations. Information obtained by: patient, RN notes reviewed and old records reviewed. HPI Narrative: 61-year-old male presents to the ER after a mechanical fall off a porch just prior to arrival he reports he landed on his left elbow. He has full range of motion noted to his elbow. He has a approximately 1 cm star-shaped laceration noted to the posterior elbow. He is up-to-date on his tetanus vaccination 2018. Past medical history includes obesity, obstructive sleep apnea, depression, GERD Related Data Home Medications Medication Instructions Recorded Confirmed esomeprazole magnesium 40 mg 40 mg PO DAILY #90 tab-cap 21 10/11/21 capsule,delayed release (Nexium) sucralfate 1 gram tablet 1 g PO DAILY #90 tab-cap 04/17/21 10/11/21 ibuprofen 200 mg tablet 400 mg PO BID PRN tab 05/15/21 10/11/21 trazodone 50 mg tablet 50 mg PO QHS #30 tab 10/11/21 10/11/21 venlafaxine 75 mg capsule,extended 75 mg PO DAILY #30 tab-cap 10/11/21 10/11/21 release 24 hr cephalexin 500 mg tablet 500 mg PO BID 10 Days #20 tab 12/10/21 Previous Rx's Medication Instructions Recorded esomeprazole magnesium 40 mg 40 mg PO DAILY #90 tab-cap 03/25/21 capsule,delayed release (Nexium) sucralfate 1 gram tablet 1 g PO DAILY #90 tab-cap 04/17/21 trazodone 50 mg tablet 50 mg PO QHS #30 tab 10/11/21 venlafaxine 75 mg capsule,extended 75 mg PO DAILY #30 tab-cap 10/11/21 release 24 hr cephalexin 500 mg tablet 500 mg PO BID 10 Days #20 tab 12/10/21 Allergies Allergy/AdvReac Type Severity Reaction Status Date / Time iohexol [From Omnipaque] Allergy Intermediate Skin Rash Unverified 10/11/21 10:03 General Stated Complaint: Laceration SANJUANA: 4 Review of Systems All systems reviewed & are unremarkable except as noted in HPI and below Musculoskeletal Musculoskeletal: Reports as per HPI, Denies deformity and Reports arthralgias (Left elbow) Integumentary/Breasts Skin/Breast: Reports as per HPI and Reports wounds PFSH All Active Problems (Updated 12/10/21 @ 22:07 by Monica White) Elbow fracture, left (Acute) Laceration of elbow, left (Acute) BMI 40.0-44.9, adult (Acute) Morbid obesity due to excess calories (Acute) Obstructive sleep apnea syndrome in adult (Chronic 07/27/13) on bipap since 2009 Depression (Chronic 06/01/13) GERD (gastroesophageal reflux disease) (Chronic) Medical History (Updated 12/10/21 @ 22:07 by Monica White) Benign paroxysmal positional vertigo of right ear Bilateral inguinal hernia Orchitis and epididymitis Surgical History EYE SURGERY Family History (Updated 10/11/21 @ 10:21 by Amy Handy MD) Sister Uterine cancer Social History (Updated 10/11/21 @ 10:20 by Amy Handy MD) Smoking/Tobacco Use Status: Former Tobacco Use Quit Date: 09/07/85 Second Hand Exposure: Yes Smoking risk assessment performed?: Yes Alcohol Intake: never Drug use: Never Substance use type: does not use Household members: significant other Housing: house Number of Children: 1 number of grandchildren: 3 Communication Needs: None Education Level: high school 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, 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 Pets and animals: Yes Pets and animals: cat(s) and dog(s) Sexually active: Yes Do you think of yourself as: straight/heterosexual What is your relationship status?: living with partner How often do you talk on the phone with friends or family?: twice per week How often do you get together with friends or relatives?: twice per week How often do you attend latter day or pentecostalism services?: 1-3 times per year Do you belong to any clubs or organized social groups?: no Panel score (0-1 are the most socially isolated patients): 2 Marleny/Hoahaoism: Evangelical Seatbelt use: always Drive intox or ride w/intox local city driver: No Do you feel safe at home: Yes Do you feel safe in your relationship?: Yes Additional Social history: Enjoys [employer] races, ice fishing. Exam Extrem General: full ROM Left upper extremity: full ROM, normal capillary refill and elbow/forearm Details: abnormal to inspection, tenderness, swelling and laceration elbow mid posterior Details: stellate, contaminated, involving subcutaneous tissue, with motor nerve function intact and with sensation intact; Negative for not actively bleeding and not with pulsatile bleeding Course Vital Signs Vital signs: Vital Signs Temperature 36.3 C L 12/10/21 18:51 Pulse 79 12/10/21 18:51 Respiratory Rate 18 12/10/21 18:51 Blood Pressure 159/91 H 12/10/21 18:51 Pulse Oximetry 98 12/10/21 18:51 Temperature 36.3 C L 12/10/21 18:51 Temperature Source Tympanic 12/10/21 18:51 Pulse 79 12/10/21 18:51 Respiratory Rate 18 12/10/21 18:51 Respiratory Effort 12/10/21 18:54 Blood Pressure 159/91 H 12/10/21 18:51 Blood Pressure Position Supine 12/10/21 18:51 Pulse Oximetry 98 12/10/21 18:51 Oxygen Delivery Method Room Air 12/10/21 18:51 Oxygen Flow Rate 0 12/10/21 18:51 Pain Level 3 12/10/21 18:51
[2021-12-10] MEDS: Lidocaine/Epinephri/Tetracaine Topical Gel 3 ML TP (20:19)
--- NOTE | 2021-12-10 21:14 | DI.VRAD_ITS ---
PROCEDURE INFORMATION: Exam: XR Left Elbow Exam date and time: 12/10/2021 8:43 PM Age: 61 years old Clinical indication: Injury or trauma; Fall; Elbow; Right; Injury date: 12/10/21; Injury details: Laceration, R/O fb, fracture TECHNIQUE: Imaging protocol: XR Left elbow. Views: 3 or more views. COMPARISON: No relevant prior studies available. FINDINGS: Bones/joints: There are no fat pad signs. There is a small bony fragment adjacent to the proximal ulna. This is at the joint space. A small fracture at this level is not excluded. Soft tissues: There is a soft tissue injury posteriorly. There is subcutaneous emphysema. Clinical correlation is recommended. IMPRESSION: Soft tissue injury. Question small fracture as above. Further evaluation as clinically warranted. Dictated and Authenticated by: Ranjeet Packer MD. Ordering:DANIEL Anderson MD
[2021-12-10] MEDS: Cephalexin 500 MG CAP PO (22:13)
[2021-12-10] MEDS: Cephalexin 500 MG CAP, 2 CAPS/BTL PO (22:13)
[2021-12-10] MEDS: Acetaminophen 500 MG TAB (22:13)
== END 2021-12-10 22:44 | disposition home or self-care (01) ==
PROVIDERS: Emergency Provider Registered Nurse Emergency; PCP Family Medicine
DX: S42.402B Unspecified fracture of lower end of left humerus, initial encounter for open fracture (principal); W17.89XA Other fall from one level to another, initial encounter
CPT/HCPCS: 99283; 73080

== ENCOUNTER 2022-02-23 18:14 | Observation (INO) | payer OTHER, SELFPAY ==
[2022-02-23] VITALS (16 sets, daily range): BP systolic 126–155; BP diastolic 65–87; PULSE 67–86; RESP 13–26; TEMP 37; O2SAT 96–99
--- NOTE | 2022-02-23 18:15 | RT.EKG_ITS ---
APPROVED REPORT Exam: Resting ECG Reason for Exam: chest pain Patient Location: E HR:70 bpm ECG Measurements Heart Rate 70 AXIS MO 195 P 32 QRSd 108 QRS -5 QT 381 T 17 QTc 410 Conclusion Sinus rhythm...normal P axis, V-rate 60- [address] dep v4-6 not present on ECG 2018
--- NOTE | 2022-02-23 18:30 | DI.RAD_ITS ---
Exam(s) XR PORTABLE CHEST AP EXAM: XR PORTABLE CHEST AP CLINICAL HISTORY: chest pain TECHNIQUE: 2D digital imaging was performed of the chest. One image was obtained. An AP view was ob tained. COMPARISON: CR XR CHEST 2V PA LATERAL from 03/28/2021 FINDINGS: MEDIASTINUM: Normal. HEART: Normal. PULMONARY VASCULATURE: Normal. LUNGS: Clear. PLEURAL SPACE: No pleural effusion or pneumothorax. BONE:Within normal limits for the patient's age. OTHER FINDINGS:Normal. IMPRESSION: No acute pulmonary findings. DATA REPOSITORY: RADIATION DOSE DELIVERED:
[2022-02-23 18:34] LABS: Abs Immature Grans 0.03 10^3/uL (0.0-0.06); Absolute Basophil Count 0.06 10^3/uL (0.0-0.2); Absolute Eosinophil Count 0.54 10^3/uL (0.0-0.7); Absolute Lymphocyte Count 1.72 10^3/uL (1.2-3.4); Absolute Monocyte Count 0.78 10^3/uL (0.1-0.8); Absolute Neutrophil Count 5.95 10^3/uL (1.2-6.7); Basophils % 0.7; Eosinophils % 5.9; HCT 44.1 % (40.0-50.0); HGB 14.7 g/dL (13.5-17.5); Immature Grans % 0.3; Lymphocytes % 18.9; MCHC 33.3 % (32.0-36.0); MCV 87 fL (80-95); MPV 9.8 fL (8.0-11.0); Monocytes % 8.6; Neutrophils % 65.6; Platelet Count 317 10^3/uL (130-400); RBC 5.07 10^6/uL (4.36-5.78); RDW 14.6 % (11.8-14.1); RDW-SD 46.5 fL; WBC 9.08 10^3/uL (4.4-10.8)
[2022-02-23] MEDS: nitroGLYcerin 0.4 MG TAB SL ×2 (18:36→18:41)
[2022-02-23 18:42] LABS: Source Nasal/Nares
[2022-02-23 18:49] LABS: INR 0.9 (0.9-1.1); PTT Activated 25.6 sec (21.0-27.5); Prothrombin Time 9.4 sec (9.3-11.0)
[2022-02-23 19:02] LABS: ALT 42 U/L (16-63); AST 36 U/L (15-37); Albumin 3.7 g/dL (3.4-5.0); Alkaline Phosphatase 106 U/L (46-116); Anion Gap 8.2 mmol/L (3-11); BUN 17 mg/dL (7-18); Bilirubin, Total 0.2 mg/dL (0.2-1.0); CO2 27.8 mmol/L (21.0-32.0); CREATININE 0.9 mg/dL (0.70-1.30); Calcium 8.5 mg/dL (8.5-10.1); Chloride 106 mmol/L (98-107); Glucose 120 mg/dL (74-106); Potassium 3.9 mmol/L (3.5-5.1); Sodium 142 mmol/L (136-145); Total Protein 7.2 g/dL (6.4-8.2); Troponin I < 50 ng/L (<or=60)
--- NOTE | 2022-02-23 19:30 | DI.VRAD_ITS ---
PROCEDURE INFORMATION: Exam: XR Chest Exam date and time: 02/23/2022 18:37 Age: 61 years old Clinical indication: Sternal or substernal pain; Patient HX: Chest pain TECHNIQUE: Imaging protocol: Radiologic exam of the chest. Views: 1 view. COMPARISON: CR XR CHEST 2V PA LATERAL 03/28/2021 09:21 FINDINGS: Lungs: Low lung volumes. Vascular crowding in the setting of low lung volumes. No airspace consolidation. Pleural spaces: No pleural effusion. No pneumothorax. Heart/Mediastinum: The cardiac silhouette is upper limits of normal. Bones/joints: No acute fracture. IMPRESSION: Vascular crowding in the setting of low lung volumes. Dictated and Authenticated by: Cathi Angulo MD. Ordering:CANELO Rey MD
--- NOTE | 2022-02-23 19:31 | ED.GENADUL_ITS ---
Discharge Plan Disposition Patient Disposition: STILL A PATIENT Discharge Details Chief Complaint: Chest Pain Primary Care Provider: Amy Handy ED Provider: Candido Simental Home Meds and New Rx's Prescriptions: No Action ibuprofen 200 mg tablet 400 mg PO BID PRN venlafaxine 75 mg capsule,extended release 24hr 75 mg PO DAILY Qty: 30 4RF Rx Instructions: take one capsule daily trazodone 50 mg tablet 50 mg PO QHS Qty: 30 4RF sucralfate 1 gram tablet 1 g PO DAILY Qty: 90 1RF Rx Instructions: - take one capsule once a day/ -2020 not sent/decreased dose esomeprazole magnesium [Nexium] 40 mg capsule,delayed release(DR/EC) 40 mg PO DAILY Qty: 90 2RF Medical Decision Making 1932 --61-year-old male with history of morbid obesity, obstructive sleep apnea, here with chest pain that started around 4 PM, initially severe now moderate. Patient is hemodynamically stable. Saturating well in no respiratory distress. Concern for acute coronary syndrome. EKG was reviewed and interpreted by me: Please see report, sinus rhythm 70 bpm, normal axis, subtle ST depressions are noted V4 to V6. These findings do appear different compared to most recent prior EKG from 07/27/2018. I reviewed and interpreted groundwater monitoring technician in the room and patient is having some intermittent bigeminy. Patient not experiencing palpitations. Patient was given nitroglycerin SL x2 and pain resolved. Pain free on reassessment. Plan for delta troponin and reassessment. Chest x-ray was reviewed and interpreted by radiology: Vascular crowding in the setting of low lung volumes. The cardiac silhouette is upper limits of normal. Patient was given aspirin 324 mg and then complained of some epigastric discomfort, different than his presenting chest pain. I will give a dose of Mylanta. HPI General Mode of arrival: ambulatory . Date/Time Provider Initiated Documentation: 02/23/22 18:19 . Limitations to Documentation: no limitations . Information obtained by: patient . HPI Narrative: 61-year-old male with history of morbid obesity, obstructive sleep apnea, GERD, here with chief complaint of chest pain. Patient notes pain started this afternoon around 4 PM. Pain localized to lower anterior chest. Pain described as a constant discomfort that was severe. He also noted pain in his bilateral jaws. Pain did improve all the way to the hospital but was present on arrival rated 5/10. No modifiers. No associated calf pain or lower extremity edema. No shortness of breath. Patient does note he had similar pain yesterday a.m. that was less severe and resolved on its own with. Related Data Home Medications Medication Instructions Recorded Confirmed ibuprofen 200 mg tablet 400 mg PO BID PRN 05/15/21 12/13/21 trazodone 50 mg tablet 50 mg PO QHS #30 tabs 10/11/21 02/23/22 venlafaxine 75 mg capsule,extended 75 mg PO DAILY #30 tab-caps 10/11/21 02/23/22 release 24 hr sucralfate 1 gram tablet 1 g PO DAILY #90 tab-caps 12/11/21 02/23/22 esomeprazole magnesium 40 mg 40 mg PO DAILY #90 tab-caps 01/16/22 02/23/22 capsule,delayed release (Nexium) Previous Rx's Medication Instructions Recorded trazodone 50 mg tablet 50 mg PO QHS #30 tabs 10/11/21 venlafaxine 75 mg capsule,extended 75 mg PO DAILY #30 tab-caps 10/11/21 release 24 hr sucralfate 1 gram tablet 1 g PO DAILY #90 tab-caps 12/11/21 esomeprazole magnesium 40 mg 40 mg PO DAILY #90 tab-caps 01/16/22 capsule,delayed release (Nexium) Allergies Allergy/AdvReac Type Severity Reaction Status Date / Time iohexol [From Omnipaque] Allergy Intermediate Skin Rash Unverified 02/23/22 18:25 General Stated Complaint: Chest Pain SANJUANA: 2 Review of Systems All systems reviewed & are unremarkable except as noted in HPI and below Constitutional Constitutional: Denies fever(s) Cardiovascular Cardiovascular: Reports as per HPI and Reports chest pain PFSH All Active Problems BMI 40.0-44.9, adult (Acute) Morbid obesity due to excess calories (Acute) Obstructive sleep apnea syndrome in adult (Chronic 07/27/13) on bipap since 2009 Depression (Chronic 06/01/13) GERD (gastroesophageal reflux disease) (Chronic) Medical History Benign paroxysmal positional vertigo of right ear Bilateral inguinal hernia Orchitis and epididymitis Surgical History EYE SURGERY Family History Sister Uterine cancer Social History Smoking/Tobacco Use Status: Former Tobacco Use Quit Date: 09/07/85 Second Hand Exposure: Yes Smoking risk assessment performed?: Yes Alcohol Intake: never Drug use: Never Substance use type: does not use Household members: significant other Housing: house Number of Children: 1 number of grandchildren: 3 Communication Needs: None Education Level: high school 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, 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 Pets and animals: Yes Pets and animals: cat(s) and dog(s) Sexually active: Yes Do you think of yourself as: straight/heterosexual What is your relationship status?: living with partner How often do you talk on the phone with friends or family?: twice per week How often do you get together with friends or relatives?: twice per week How often do you attend uatsdin or yazdanism services?: 1-3 times per year Do you belong to any clubs or organized social groups?: no Panel score (0-1 are the most socially isolated patients): 2 Marleny/Protestant: Baptism Seatbelt use: always Drive intox or ride w/intox tank driver: No Do you feel safe at home: Yes Do you feel safe in your relationship?: Yes Additional Social history: Enjoys [employer] races, ice fishing. Exam Const General: cooperative and no acute distress HENMT Mouth: moist mucous membranes Eyes Conjunctivae: normal conjunctivae Sclera: normal sclerae Neck Neck: trachea midline and supple Resp Auscultation: clear to auscultation bilaterally, no rales, no rhonchi and no wheezes Cardio Rate: regular rate and not tachycardic Rhythm: regular rhythm GI Palpation: soft, not firm, no guarding, no masses, not rigid and tender in the epigastrum Auscultation: normal bowel sounds Skin General skin exam: no rashes or lesions noted Neuro General: patient alert, patient awake and tone normal Extrem General: no calf tenderness and no edema Psych Appearance: grossly normal Mental Status: mental status grossly normal Speech and Movement: speech and movement normal Course Vital Signs Vital signs: Vital Signs Temperature 37.0 C 06/19/22 18:19 Pulse 80 02/23/22 18:19 Respiratory Rate 26 H 02/23/22 18:19 Pulse Oximetry 98 02/23/22 18:19 Temperature 37.0 C 02/23/22 18:19 Temperature Source Temporal Artery Scan 02/23/22 18:19 Pulse 68 02/23/22 18:40 Pulse 72 02/23/22 18:41 Respiratory Rate 14 02/23/22 18:41 Respiratory Effort Non-Labored 02/23/22 18:29 Respiratory Depth Normal 02/23/22 18:29 Respiratory Pattern Normal 02/23/22 18:29 Blood Pressure 149/70 H 02/23/22 18:40 Blood Pressure Mean 82 02/23/22 18:40 Blood Pressure Position Supine 02/23/22 18:19 Pulse Oximetry 97 02/23/22 18:41 Oxygen Delivery Method Room Air 02/23/22 18:19 Oxygen Flow Rate 0 02/23/22 18:19 Pain Level 5 02/23/22 18:29 Lab/Test Results Lab/Test Results: Laboratory Tests Range/Units 02/23/22 02/23/22 02/23/22 18:20 18:20 18:20 WBC (4.4-10.8) 10^3/uL 9.08 RBC (4.36-5.78) 10^6/uL 5.07 Hgb (13.5-17.5) g/dL 14.7 Hct (40.0-50.0) % 44.1 MCV (80-95) fL 87 MCH (27.0-33.0) pg 29.0 MCHC (32.0-36.0) % 33.3 RDW (11.8-14.1) % 14.6 H Plt Count (130-400) 10^3/uL 317 MPV (8.0-11.0) fL 9.8 Immature Gran % 0.3 Neutrophils % 65.6 Lymphocytes % 18.9 Monocytes % 8.6 Eosinophils % 5.9 Basophils % 0.7 Nucleated RBC % (0.0-0.3) % 0.0 Absolute Neutrophils (1.2-6.7) 10^3/uL 5.95 Absolute Lymphocytes (1.2-3.4) 10^3/uL 1.72 Absolute Monocytes (0.1-0.8) 10^3/uL 0.78 Absolute Eosinophils (0.0-0.7) 10^3/uL 0.54 Absolute Basophils (0.0-0.2) 10^3/uL 0.06 PT (9.3-11.0) sec 9.4 INR (0.9-1.1) 0.9 APTT (21.0-27.5) sec 25.6 Sodium (136-145) mmol/L 142 Potassium (3.5-5.1) mmol/L 3.9 Chloride (98-107) mmol/L 106 Carbon Dioxide (21.0-32.0) mmol/L 27.8 Anion Gap (3-11) mmol/L 8.2 BUN (7-18) mg/dL 17 Creatinine (0.70-1.30) mg/dL 0.9 Estimated GFR/1.73 m2 (mL/min/1.73m2) >= 60.00 Glucose (74-106) mg/dL 120 H Calcium (8.5-10.1) mg/dL 8.5 Magnesium (1.8-2.4) mg/dL 2.0 Total Bilirubin (0.2-1.0) mg/dL 0.2 AST (15-37) U/L 36 ALT (16-63) U/L 42 Alkaline Phosphatase (46-116) U/L 106 Troponin I (<or=60) ng/L < 50 Total Protein (6.4-8.2) g/dL 7.2 Albumin (3.4-5.0) g/dL 3.7 COVID-19 Source Range/Units 02/23/22 18:38 WBC (4.4-10.8) 10^3/uL RBC (4.36-5.78) 10^6/uL Hgb (13.5-17.5) g/dL Hct (40.0-50.0) % MCV (80-95) fL MCH (27.0-33.0) pg MCHC (32.0-36.0) % RDW (11.8-14.1) % Plt Count (130-400) 10^3/uL MPV (8.0-11.0) fL Immature Gran % Neutrophils % Lymphocytes % Monocytes % Eosinophils % Basophils % Nucleated RBC % (0.0-0.3) % Absolute Neutrophils (1.2-6.7) 10^3/uL Absolute Lymphocytes (1.2-3.4) 10^3/uL Absolute Monocytes (0.1-0.8) 10^3/uL Absolute Eosinophils (0.0-0.7) 10^3/uL Absolute Basophils (0.0-0.2) 10^3/uL PT (9.3-11.0) sec INR (0.9-1.1) APTT (21.0-27.5) sec Sodium (136-145) mmol/L Potassium (3.5-5.1) mmol/L Chloride (98-107) mmol/L Carbon Dioxide (21.0-32.0) mmol/L Anion Gap (3-11) mmol/L BUN (7-18) mg/dL Creatinine (0.70-1.30) mg/dL Estimated GFR/1.73 m2 (mL/min/1.73m2) Glucose (74-106) mg/dL Calcium (8.5-10.1) mg/dL Magnesium (1.8-2.4) mg/dL Total Bilirubin (0.2-1.0) mg/dL AST (15-37) U/L ALT (16-63) U/L Alkaline Phosphatase (46-116) U/L Troponin I (<or=60) ng/L Total Protein (6.4-8.2) g/dL Albumin (3.4-5.0) g/dL COVID-19 Source Nasal/Nares
[2022-02-23 19:34] LABS: COVID-19 PCR Negative (Negative)
[2022-02-23] MEDS: Aspirin 81 MG CHEW (19:36)
[2022-02-23] MEDS: Mylanta Suspension 30 ML CUP PO (19:47)
--- NOTE | 2022-02-23 21:15 | RT.EKG_ITS ---
APPROVED REPORT Exam: Resting ECG Reason for Exam: chest pain Patient Location: E HR:72 bpm ECG Measurements Heart Rate 72 AXIS WA 196 P 27 QRSd 109 QRS -6 QT 376 T 9 QTc 411 Conclusion Sinus rhythm...normal P axis, V-rate 60- 99 sinus rhythm, normal axis and intervals, T wave inversion III
[2022-02-23 21:45] LABS: Troponin I < 50 ng/L (<or=60)
--- NOTE | 2022-02-23 22:50 | W.EDPROG ---
Date of service: 02/23/22 Time of Service: 22:53 Medical Decision Making Resting comfortably no acute distress. Moderate risk heart score. Repeat EKG showing T wave inversion in lead III dynamic from initial EKG, chest pain-free, intermittent PVCs on telemetry. Hemodynamically stable. 2 troponins negative. Given moderate risk heart score and initial presentation patient be kept for evaluation by cardiology. Sign Out Sign Out Data: Sign Out Comment: follow-up repeat trop and ekg, reassess for disposition Last updated by Candido Simental MD at 02/23/22 20:04 Discharge Plan Disposition Patient Disposition: [facility] INPATIENT Condition: Stable Discharge Details Clinical Impression: Chest pain Primary Care Provider: Amy Handy ED Provider: Hosea Salazar Home Meds and New Rx's Prescriptions: No Action ibuprofen 200 mg tablet 400 mg PO BID PRN venlafaxine 75 mg capsule,extended release 24hr 75 mg PO DAILY Qty: 30 4RF Rx Instructions: take one capsule daily trazodone 50 mg tablet 50 mg PO QHS Qty: 30 4RF sucralfate 1 gram tablet 1 g PO DAILY Qty: 90 1RF Rx Instructions: - take one capsule once a day/ -2020 not sent/decreased dose esomeprazole magnesium [Nexium] 40 mg capsule,delayed release(DR/EC) 40 mg PO DAILY Qty: 90 2RF
--- NOTE | 2022-02-23 23:25 | W.PM.HP.N ---
Date of service: 02/23/22 Time of Service: 23:25 Assessment and Plan Assessment and plan (1) Chest pain: Status: Acute Assessment and plan: CP, atypical, and given duration I would have expected some bump in troponin were this ACS. There is though the subtle dynamic EKG findings, and response to NTG, though this latter is non-specific. I think the overall probability is that this was non-cardiac, but will complete troponin series and, if negative, would advise stress test in AM. History of Present Illness History of Present Illness Chief Complaint: chest pain Narrative: 61 male with h/o GERD. Had fairly rapid onset sharp lower anterior chest pain approx 4 PM today. Thought it was his heartburn, though more intense than usual. Had brief (1-2 seconds) of discomfort in jaw sometime thereafter, at which point he came to ER. No SOB, nausea or diaphoresis. Pain at this point was still present though waning. In ER initial EKG showed minimal ST sagging in leads v4-6. Trop negative x 2. Given NTG x2 with resolution of pain, and normalization of subtle EKG findings. Total duration of pain over 4 hours. Given ASA 324, epigastric discomfort shortly thereafter, relieved with Mylanta. ER further reports occasional asymptomatic PVCs on monitor. I was asked to evaluate. States he feels fine at present. 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 Review of Systems Narrative: per HPI PFSH All Active Problems Chest pain (Acute) BMI 40.0-44.9, adult (Acute) Morbid obesity due to excess calories (Acute) Obstructive sleep apnea syndrome in adult (Chronic 07/27/13) on bipap since 2009 Depression (Chronic 06/01/13) GERD (gastroesophageal reflux disease) (Chronic) Medical History Benign paroxysmal positional vertigo of right ear Bilateral inguinal hernia Orchitis and epididymitis Surgical History EYE SURGERY Family History Sister Uterine cancer Social History Smoking/Tobacco Use Status: Former Tobacco Use Quit Date: 09/07/85 Second Hand Exposure: Yes Smoking risk assessment performed?: Yes Alcohol Intake: never Drug use: Never Substance use type: does not use Household members: significant other Housing: house Number of Children: 1 number of grandchildren: 3 Communication Needs: None Education Level: high school 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, 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 Pets and animals: Yes Pets and animals: cat(s) and dog(s) Sexually active: Yes Do you think of yourself as: straight/heterosexual What is your relationship status?: living with partner How often do you talk on the phone with friends or family?: twice per week How often do you get together with friends or relatives?: twice per week How often do you attend religious or quaker services?: 1-3 times per year Do you belong to any clubs or organized social groups?: no Panel score (0-1 are the most socially isolated patients): 2 Marleny/Mandaeism: Sabianist Seatbelt use: always Drive intox or ride w/intox local owner operator truck driver: No Do you feel safe at home: Yes Do you feel safe in your relationship?: Yes Additional Social history: Enjoys [employer], [employer]. Meds Allergies and Home Medications Allergies Allergy/AdvReac Type Severity Reaction Status Date / Time iohexol [From Omnipaque] Allergy Intermediate Skin Rash Unverified 02/23/22 18:25 Home Medications Medication Instructions Recorded Confirmed Type ibuprofen 200 mg tablet 400 mg PO BID PRN 05/15/21 12/13/21 History trazodone 50 mg tablet 50 mg PO QHS #30 tabs 10/11/21 02/23/22 Rx venlafaxine 75 mg capsule,extended 75 mg PO DAILY #30 tab-caps 10/11/21 02/23/22 Rx release 24 hr sucralfate 1 gram tablet 1 g PO DAILY #90 tab-caps 12/11/21 02/23/22 Rx esomeprazole magnesium 40 mg 40 mg PO DAILY #90 tab-caps 01/16/22 02/23/22 Rx capsule,delayed release (Nexium) Exam Narrative Exam Narrative: 142/78, 76, 37.0, 13, 97% RA. Occasional PVC noted on monitor. HEENT atraumatic; neck supple, cannot read JVP; lungs clear; heart occ ectopic, w/o MRG; abdomen soft and NT; extremities w/o edema, pulses 2+/=; neuro Ox3, lucid, moves all 4s Results Labs Result diagrams: 02/23/22 18:20 02/23/22 18:20 Labs: Laboratory Results - last 24 hr 02/23/22 02/23/22 02/23/22 18:20 18:20 18:20 WBC 9.08 RBC 5.07 Hgb 14.7 Hct 44.1 MCV 87 MCH 29.0 MCHC 33.3 RDW 14.6 H Plt Count 317 MPV 9.8 Immature Gran % 0.3 Neutrophils % 65.6 Lymphocytes % 18.9 Monocytes % 8.6 Eosinophils % 5.9 Basophils % 0.7 Nucleated RBC % 0.0 Absolute Neutrophils 5.95 Absolute Lymphocytes 1.72 Absolute Monocytes 0.78 Absolute Eosinophils 0.54 Absolute Basophils 0.06 PT 9.4 INR 0.9 APTT 25.6 Sodium 142 Potassium 3.9 Chloride 106 Carbon Dioxide 27.8 Anion Gap 8.2 BUN 17 Creatinine 0.9 Estimated GFR/1.73 m2 >= 60.00 Glucose 120 H Calcium 8.5 Magnesium 2.0 Total Bilirubin 0.2 AST 36 ALT 42 Alkaline Phosphatase 106 Troponin I < 50 Total Protein 7.2 Albumin 3.7 COVID-19 Source SARS-CoV-2 (PCR) 02/23/22 02/23/22 18:38 21:22 WBC RBC Hgb Hct MCV MCH MCHC RDW Plt Count MPV Immature Gran % Neutrophils % Lymphocytes % Monocytes % Eosinophils % Basophils % Nucleated RBC % Absolute Neutrophils Absolute Lymphocytes Absolute Monocytes Absolute Eosinophils Absolute Basophils PT INR APTT Sodium Potassium Chloride Carbon Dioxide Anion Gap BUN Creatinine Estimated GFR/1.73 m2 Glucose Calcium Magnesium Total Bilirubin AST ALT Alkaline Phosphatase Troponin I < 50 Total Protein Albumin COVID-19 Source Nasal/Nares SARS-CoV-2 (PCR) Negative Last Vital Signs Temp 37.0 C 02/23/22 18:19 Pulse 76 02/23/22 19:36 Resp 13 02/23/22 19:36 BP 142/78 H 02/23/22 19:36 Pulse Ox 97 02/23/22 19:36
[2022-02-24] VITALS (8 sets, daily range): BP systolic 133–148; BP diastolic 67–83; PULSE 66–92; RESP 18–19; TEMP 35.7–37; O2SAT 92–98
--- NOTE | 2022-02-24 | ETT_ITS ---
APPROVED REPORT Exam: Exercise Treadmill Patient Location: In-Patient Room/Bed: 231 Stress Nurse: Gladys Ferguson RN Ordering Provider:LANIE ADAME, Contact Number: BMI: 39.45 Baseline Rhythm: Sinus Rhythm Comment: PVCs Indications: CHEST PAIN Medical History Medical History: SALVATORE, GERD, Morbid obesity Cardiac Medications: Esomeprazole Allergies: Ilhexol Cardiac Risk Factors: Smoking (former), Obesity Previous Cardiac Procedures: None Pretest Chest Pain Characteristics: No chest pain Exercise History: Sedentary Physical Disabilities: None Lung Sounds: Clear to auscultation Heart Sounds: Regular Stress Test Details Test: Exercise stress testing was performed using a Joseph protocol. Rest Stress HR Max Heart Rate (APMHR): 161 bpm Target HR (85% APMHR): 136 bpm BP Resting BP Supine: 148/82 mmHg Resting BP Standin/78 mmHg Max BP: 190/88 mmHg Recovery BP: 168/70 mmHg BP response to stress: Normal blood pressure response to stress. ECG Resting ECG: Sinus Rhythm Ectopy: PVCs Stress ECG: Sinus Tachycardia ST Change: No significant ST segment changes noted Arrhythmia: PVCs Recovery ECG: Sinus Rhythm Recovery ST Change: No significant ST segment changes noted Recovery Arrhythmia: PVCs, PVC couplet, short bursts of bigeminy Clinical Reason for Termination: Fatigue Stress Symptoms: Dyspnea, General Fatigue Exercise duration: 6 min29 sec Highest Stage Reached: Stage 3: 3.4 mph at 14% grade. Exercise capacity: 7.78 METs Rate Pressure Product: 0 Stress ECG Conclusion 1. The patient exercised for 6 minutes and 30 seconds (7.8 METS). Exercise was stopped due to fatigu e. 2. The patient no ST changes suggestive of ischemia. 3. Notably, there were PVCs as well as couplets and episodes of bigeminy 4. Do treadmill score +6, low risk Stress Test Summary STAGE Time (mins) Speed (mph) Grade (%) HR BP SYMPTOMS METS Supine 85 148/82 Standing 93 148/78 1 3 1.7 10 132 182/84 4.6 2 6 2.5 12 146 190/88 7 1 min recovery 135 188/76 3 min recovery 106 182/68 6 min recovery 95 168/70
--- NOTE | 2022-02-24 00:45 | RT.EKG_ITS ---
APPROVED REPORT Exam: Resting ECG Reason for Exam: chest pain Patient Location: E HR:69 bpm ECG Measurements Heart Rate 69 AXIS [place] 196 P 46 QRSd 106 QRS 2 QT 384 T 9 QTc 413 Conclusion Sinus rhythm...normal P axis, V-rate 60- 99 \ sinus rhythm, normal axis, normal intervals, t wave inversion lead III
[2022-02-24 01:02] LABS: Troponin I < 50 ng/L (<or=60)
[2022-02-24] MEDS: Esomeprazole 40 MG CAPCR PO (08:41)
[2022-02-24] MEDS: Normal Saline Flush 10 ML SYR IVP (08:41)
[2022-02-24] MEDS: Sucralfate 1 GM TAB PO (08:41)
[2022-02-24] MEDS: Venlafaxine 75 MG CAPCR PO (08:41)
--- NOTE | 2022-02-24 09:39 | PDOC.CMIN ---
- If Service Date Differs Date of service: 02/24/22 Time of Service: 09:39 Care Management Initial Assess REASON FOR HOSPITALIZATION:: Chest pain PAST MEDICAL HISTORY/PAST SURGICAL HISTORY:: All Active Problems . Chest pain (Acute). BMI 40.0-44.9, adult (Acute). Morbid obesity due to excess calories (Acute). Obstructive sleep apnea syndrome in adult (Chronic 07/27/13). on bipap since 2009. Depression (Chronic 06/01/13). GERD (gastroesophageal reflux disease) (Chronic). Medical History . Benign paroxysmal positional vertigo of right ear. Bilateral inguinal hernia. Orchitis and epididymitis. Surgical History . EYE SURGERY PREVIOUS FUNCTIONAL STATUS/SOCIAL/FAMILY SUPPORTS:: Umesh lives in [facility] with his s/o Keisha. ADVANCE DIRECTIVES:: None on file, CM will offer forms. Has patient been provided with info about the portal/API?: Yes Did the patient sign up for the portal?: No CODE STATUS:: Full Code INSURANCE COVERAGE / FINANCIAL ISSUES:: Health Plans, INC PRIMARY CARE PHYSICIAN:: [facility] PATIENT/FAMILY EDUCATION NEEDS:: Review discharge instructions, limitations, medications and plan to follow up with community providers. ask me three. TRANSPORTATION:: Via private vehicle with family. PLAN:: Anticipate Umesh will discharge home via private vehicle with family when medically ready per MD. He will follow up with his community provider's and discharge plan of care as prescribed.
--- NOTE | 2022-02-24 15:50 | W.PM.DS.N ---
Date of service: 02/24/22 Time of Service: 15:51 DS: Diagnosis Discharge Diagnosis (1) Chest pain: Status: Acute Discharge Plan Disposition Patient Disposition: HOME Condition: Stable Discharge Details Reason For Visit: CP Admit Date/Time: 02/23/22 23:39 Admit Provider: Jerod Pinto Attending Provider: Jerod Pinto Primary Care Provider: Amy Handy Hospital Course Hospital Course: Umesh is a 61 year old male with pmhx of GERD, depression, SALVATORE, and obesity. 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 Last evening he had a sudden onset of what he described as sharp, lower anterior chest pain. He thought it was his usual heart burn but then felt it was something a little different and more intense. He may have had a brief radiation to the jaw. No SOB, no diaphoresis, no nausea, no vomiting. Stated he has not had anything like this in the past. In ED he received 2 NTG, with resolution of pain. He has 3 negative troponins, no further chest pain. He underwent a stress test . the concusion was no ST changes treadmill score +6 lowerisk. His cardiovascular risk assessment is 9.9%. Considered statin, however he doesn't have a recent lipid panel. I ordered one and will have him follow up with his PCP. Adivsed to return to ED if CP or SOB breath. He agreed, he would. Discussed with Dr Castle. Home Meds and New Rx's Prescriptions: Continued ibuprofen 200 mg tablet 400 mg PO BID PRN venlafaxine 75 mg capsule,extended release 24hr 75 mg PO DAILY Qty: 30 4RF Rx Instructions: take one capsule daily trazodone 50 mg tablet 50 mg PO QHS Qty: 30 4RF sucralfate 1 gram tablet 1 g PO DAILY Qty: 90 1RF Rx Instructions: - take one capsule once a day/ not sent/decreased dose esomeprazole magnesium [Nexium] 40 mg capsule,delayed release(DR/EC) 40 mg PO DAILY Qty: 90 2RF Discharge Instructions Instructions: Chest Pain (DC), Low-Sodium Diet (DC), Hypertension (DC), Hyperlipidemia (DC) Additional Instructions: Your blood pressure was elevated here, 140's/80's mostly - please take your blood pressure twice a day, same time, circumstances, 5 minutes of rest; keep a log, bring it to your appointment with you PCP. Heart healthy diet, do not start an exercise program until you see your PCP and discuss that with her. Walking is ok. Any chest pain, shortness of breath please return to the emergency department. The last cholesterol test that we have is from 2019 - I have ordered a fasting lipid (cholesterol) panel. Please call the lab to make an appointment for that prior to your PCP appointment. It is fasting. A statin might be recommended, depending on those results. Stand Alone Forms: Nursing Discharge Form Referrals: Amy Handy MD [Primary Care Provider] - 03/07/22 3:40 pm (1-2 weeks) Activity:: Activity as Tolerated Equipment/Supplies:: No Equipment Needed Diet:: Low Sodium Discharge Orders Discharge Orders: Discharge Order (Routine); Ordered 02/24/22 Ordered By: Tori Cassidy Other Ambulatory Orders: Lipid 2 (Routine) Timeframe: 1 Week Location: None Selected Ordered By: Tori Cassidy DS: Summary Time Spent with Patient providing and/or coordinating discharge services: Less than 30 minutes Status at Discharge Functional status at discharge: independent ambulation Overall status at discharge: patient is back to baseline Mental Status: mental status grossly normal Speech and Movement: speech and movement normal Mood: congruent mood Affect: normal affect Exam Psych Mental Status: mental status grossly normal Speech and Movement: speech and movement normal Mood: congruent mood Affect: normal affect DS: Data Vitals/I&O Vitals and I&O: Vital Signs Temperature 36.4 C L 02/24/22 13:24 Temperature Source Tympanic 02/24/22 13:24 Pulse 85 02/24/22 13:24 Pulse Rhythm Regular 02/24/22 10:00 Pulse 72 02/23/22 19:31 Respiratory Rate 18 02/24/22 13:24 Respiratory Effort Non-Labored 02/24/22 10:00 Respiratory Depth Normal 02/24/22 10:00 Respiratory Pattern Normal 02/24/22 10:00 Blood Pressure 148/79 H 02/24/22 13:24 Blood Pressure Mean 91 02/23/22 19:31 Blood Pressure Position Supine 02/23/22 18:19 Pulse Oximetry 97 02/24/22 13:24 Oxygen Delivery Method Room Air 02/24/22 13:24 Oxygen Flow Rate 0 02/24/22 13:24 Pain Level 0 02/24/22 13:24 Intake & Output 02/23/22 02/24/22 02/24/22 23:59 11:59 23:59 Intake Total 430 / 430 Output Total 425 / 425 Balance -425 / -425 430 / 430 Weight 136.078 kg 86.183 kg Intake: IV 30 / 30 Oral 400 / 400 Output: Urine 425 / 425 Other: Urine Color Yellow Urine Appearance Clear Urine Odor Normal Comment pT stated he has voided. pT goes to the bathroom independently. Voiding Methods Toilet Toilet Data Completed and Pending Labs on day of discharge: Labs from last 24 hours 02/24/22 02/24/22 02/23/22 12:20 00:29 21:22 WBC RBC Hgb Hct MCV MCH MCHC RDW Plt Count MPV Immature Gran % Neutrophils % Lymphocytes % Monocytes % Eosinophils % Basophils % Nucleated RBC % Absolute Neutrophils Absolute Lymphocytes Absolute Monocytes Absolute Eosinophils Absolute Basophils PT INR APTT Sodium Potassium Chloride Carbon Dioxide Anion Gap BUN Creatinine Estimated GFR/1.73 m2 Glucose Calcium Magnesium Total Bilirubin AST ALT Alkaline Phosphatase Troponin I Cancelled < 50 < 50 Total Protein Albumin COVID-19 Source SARS-CoV-2 (PCR) 02/23/22 02/23/22 02/23/22 18:38 18:20 18:20 WBC 9.08 RBC 5.07 Hgb 14.7 Hct 44.1 MCV 87 MCH 29.0 MCHC 33.3 RDW 14.6 H Plt Count 317 MPV 9.8 Immature Gran % 0.3 Neutrophils % 65.6 Lymphocytes % 18.9 Monocytes % 8.6 Eosinophils % 5.9 Basophils % 0.7 Nucleated RBC % 0.0 Absolute Neutrophils 5.95 Absolute Lymphocytes 1.72 Absolute Monocytes 0.78 Absolute Eosinophils 0.54 Absolute Basophils 0.06 PT 9.4 INR 0.9 APTT 25.6 Sodium Potassium Chloride Carbon Dioxide Anion Gap BUN Creatinine Estimated GFR/1.73 m2 Glucose Calcium Magnesium Total Bilirubin AST ALT Alkaline Phosphatase Troponin I Total Protein Albumin COVID-19 Source Nasal/Nares SARS-CoV-2 (PCR) Negative 02/23/22 18:20 WBC RBC Hgb Hct MCV MCH MCHC RDW Plt Count MPV Immature Gran % Neutrophils % Lymphocytes % Monocytes % Eosinophils % Basophils % Nucleated RBC % Absolute Neutrophils Absolute Lymphocytes Absolute Monocytes Absolute Eosinophils Absolute Basophils PT INR APTT Sodium 142 Potassium 3.9 Chloride 106 Carbon Dioxide 27.8 Anion Gap 8.2 BUN 17 Creatinine 0.9 Estimated GFR/1.73 m2 >= 60.00 Glucose 120 H Calcium 8.5 Magnesium 2.0 Total Bilirubin 0.2 AST 36 ALT 42 Alkaline Phosphatase 106 Troponin I < 50 Total Protein 7.2 Albumin 3.7 COVID-19 Source SARS-CoV-2 (PCR) PFSH All Active Problems Chest pain (Acute) BMI 40.0-44.9, adult (Acute) Morbid obesity due to excess calories (Acute) Obstructive sleep apnea syndrome in adult (Chronic 07/27/13) on bipap since 2009 Depression (Chronic 06/01/13) GERD (gastroesophageal reflux disease) (Chronic) Medical History Benign paroxysmal positional vertigo of right ear Bilateral inguinal hernia Orchitis and epididymitis Surgical History EYE SURGERY Family History Sister Uterine cancer Social History Smoking/Tobacco Use Status: Former Tobacco Use Quit Date: 09/07/85 Second Hand Exposure: Yes Smoking risk assessment performed?: Yes Alcohol Intake: never Drug use: Never Substance use type: does not use Household members: significant other Housing: house Number of Children: 1 number of grandchildren: 3 Communication Needs: None Education Level: high school 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, 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 Pets and animals: Yes Pets and animals: cat(s) and dog(s) Sexually active: Yes Do you think of yourself as: straight/heterosexual What is your relationship status?: living with partner How often do you talk on the phone with friends or family?: twice per week How often do you get together with friends or relatives?: twice per week How often do you attend denominational or scientologist services?: 1-3 times per year Do you belong to any clubs or organized social groups?: no Panel score (0-1 are the most socially isolated patients): 2 Marleny/Yazidi: Oriental Orthodox Seatbelt use: always Drive intox or ride w/intox driver courier: No Do you feel safe at home: Yes Do you feel safe in your relationship?: Yes Additional Social history: Enjoys [employer] races, ice fishing.
--- NOTE | 2022-02-24 17:09 | PDOC.CMDIS ---
- If Service Date Differs Date of service: 02/24/22 Time of Service: 17:09 LACE Index Scoring Tool - Questions: Length of Stay (in days): 1 Acuity (Admit via E.D.?): Yes E.D. Visits: 5 - Answers: Total Score: 8 Risk of Readmission: Low Risk Care Management Discharge Reason for Hospitalization: Chest pain Discharge Plan: Discharge home via private vehicle with family. Follow up with PCP on 03/07/22 at 3:40pm as scheduled. Repeat labs in 1 week. Patient/Family Education Needs: Review discharge instructions, limitations, medications and plan to follow up with community providers. ask me three.
== END 2022-02-24 14:46 | disposition home or self-care (01) ==
LOC: ER 02-24 00:41 → MS 02-24 01:11
PROVIDERS: Student in an Organized Health Care Education/Training Program; Admitting Provider General Practice; Emergency Provider Emergency Medicine; PCP Family Medicine; Visit Provider General Practice
DX: R07.9 Chest pain, unspecified (principal); R00.8 Other abnormalities of heart beat; I49.3 Ventricular premature depolarization; G47.33 Obstructive sleep apnea (adult) (pediatric); R94.31 Abnormal electrocardiogram [ECG] [EKG]; K21.9 Gastro-esophageal reflux disease without esophagitis; Z79.899 Other long term (current) drug therapy; Z87.891 Personal history of nicotine dependence; Z20.822 Contact with and (suspected) exposure to COVID-19; F32.A Depression, unspecified; E66.01 Morbid (severe) obesity due to excess calories; Z68.39 Body mass index [BMI] 39.0-39.9, adult
CPT/HCPCS: 36415; 80053; 87635; 93005; 99285; 71045; 83735; 84484; 85025; 85610; 85730; 93010; 93017; 99217; 99219; G0378

== ENCOUNTER 2022-03-07 03:21 | Outpatient (CLI) | payer OTHER, SELFPAY ==
--- OUTSIDE RECORDS SUMMARY | 2022-03-07 03:24 | XMS_ITS | Clinical Summary ---
:1960 Author Organization [facility] [place] [address] Care Team Providers Name Role Phone Unknown Primary Care Provider Unavailable Allergies No known active allergies Medications Medication Sig Dispensed Refills Start Date End Date Status aspirin 81 mg EC tablet Take 81 mg by 0 Active mouth daily. omeprazole (PRILOSEC) Take 20 mg by 0 Active 20 mg capsule mouth daily. acetaminophen (TYLENOL) Take 650 mg by 0 Active 325 mg tablet mouth every 4 hours as needed. naproxen (NAPROSYN) 500 Take 1 tablet by 60 tablet 12 1 Active mg tablet mouth 2 times daily (with meals). methotrexate Take 5 tablets by 60 tablet 3 06/30/2011 Active (METHOTREXATE) 2.5 mg mouth once a tablet week. folic acid (FOLVITE) 1 Take 1 tablet by 30 tablet 12 06/30/2011 Active mg tablet mouth daily. Active Problems Problem Noted Date Trauma 06/30/2011 Overview: Finger trauma due to chainsaw accident Anxiety 06/30/2011 Depression 06/30/2011 Hypertension 06/30/2011 Neuropathy 06/30/2011 GERD (gastroesophageal reflux disease) 06/30/2011 Paresthesia 06/30/2011 Overview: Numbness and tingling over face and head going down back Social History Tobacco Use Types Packs/Day Years Used Date Former Smoker Sex Assigned at Date Recorded Not on file Last Filed Vital Signs Vital Sign Reading Time Taken Comments Blood Pressure 139/97 06/30/2011 2:25 PM EDT Pulse 109 06/30/2011 2:25 PM EDT Temperature 37.9 ??C (100.2 ??F) 06/30/2011 2:25 PM EDT Respiratory Rate - - Oxygen Saturation 96% 06/30/2011 2:25 PM EDT Inhaled Oxygen Concentration - - Weight 115.7 kg (255 lb) 06/30/2011 2:25 PM EDT Height 177.8 cm (5' 10) 06/30/2011 2:25 PM EDT Body Mass Index 36.59 06/30/2011 2:25 PM EDT Plan of Treatment Health Maintenance Due Date Last Done Comments Covid-19 Vaccine (#1) 1967 HIV screen 02/29/1980 Hepatitis C Screening 02/29/1980 Lipid Screening 02/29/1980 Tdap adult 1981 Tetanus vaccine 1981 Colonoscopy 2007 Zoster vaccine (1 of 2) 02/29/2012 Advance Directive 2017 Influenza (Flu) vaccine (1 of 1 - Influenza standard 05/08/2021 series) Insurance Payer Benefit Plan / Subscriber ID Effective Dates Phone Addre ss Type Group HEALTH PLANS HEALTH PLANS [id number] 2018-[place] [id number] [employer] [address] [place] [address] Care Teams Book Illustrator Relationship Specialty Start Date End Date Unknown PCP - General 07/30/10 None
--- OUTSIDE RECORDS SUMMARY | 2022-03-07 03:24 | XMS_ITS | Encounter Summary ---
:1960 Author Organization [facility] [place] [address] Care Team Providers Name Role Phone Unknown Primary Care Provider Unavailable Reason for Visit Reason Comments Joint Pain Muscle Pain Encounter Details Date Type Department Care Team Description 06/30/2011 [place] Visit [place] [facility] Dumont Joint pain (Primary Dx); [facility] MD Ajay Trauma; [place] [address] [facility] [phone] [address] [place] [id number] Social History Tobacco Use Types Packs/Day Years Used Date Former Smoker Sex Assigned at Date Recorded Not on file documented as of this encounter Last Filed Vital Signs Vital Sign Reading [...] Mass Index 36.59 06/30/2011 2:25 PM EDT documented in this encounter Progress Notes Mandeep Dumont MD - 07/01/2011 12:28 PM EDT I saw this patient with the resident and agree with the impression and plan. Talib Baron MD - 06/30/2011 3:12 PM EDT Subjective: Patient ID: Umesh Dyson is a 51 y.o. male presenting to the Rheumatology clinic for complaints of joint pain and swelling. RHEUMATOLOGY RESIDENT CONSULT OFFICE NOTE Patient Name: Umesh Dyson Date of encounter: 06/30/2011 Mr. Dyson is a 51 y.o. male whom I am seeing at the request of Zoila Lazaro for evaluation of joint pain. HPI: Patient noticed abrupt onset pain in second and third mcp joint in left hand associated with swelling for the past few months. It was initially associated with swelling which resolved. It was constant in nature and progressively worsened to involved his right hand as well. Distribution was symmetric in left and right MCPs as well as PIP joints with no involvement of DIPs. He claimed it slowly spread to his shoulder joints and slight involvement of elbow joints as well as hip joints and knee involvement as well. Ankles are sometimes involved. He also has been complaining of lower back pain. There ismorning stiffness lasting up to an hour and movement helps him mildly. Has tried Ibuprofen and Tylenol with no relief. Pain is around a 7/10 on a bad day and a 2/10 on a good day. ROS is positive for fever, fatigue as well as having cold like symptoms for the past few days. Is onAtkins diet for weight loss. Has had chest pain (likely musculoskeletal - changes with movement) with cardiac causes excluded. Denies rashes, difficulty getting up out of chair, going up or down stairs, any vision changes, photophobia, dry eyes/dry mouth, headaches or GI/ symptoms. Muscle Pain Associated symptoms include fatigue, a fever and joint swelling. Review of Systems Constitutional: Positive for fever, activity change, appetite change and fatigue. Negative for unexpected weight change. HENT: Negative. Negative for facial swelling. Eyes: Negative. Respiratory: Negative. Cardiovascular: Negative. Gastrointestinal: Negative. Negative for abdominal distention. Genitourinary: Negative. Musculoskeletal: Positive for back pain, joint swelling and arthralgias. Skin: Positive for color change. Neurological: Positive for dizziness, light-headedness and numbness. Hematological: Negative. Psychiatric/Behavioral: Negative. Patient Active Problem List Diagnoses Code ??? Trauma 959.9N ??? Anxiety 300.00E ??? Depression 311L ??? Hypertension 401.9AJ ??? Neuropathy 355.9AB ??? GERD (gastroesophageal reflux disease) 530.81S ??? Paresthesia 782.0E HOME MEDICATIONS: Current outpatient prescriptions Medication Sig Dispense Refill ??? aspirin 81 mg EC tablet Take 81 mg by mouth daily. ??? omeprazole (PRILOSEC) 20 mg capsule Take 20 mg by mouth daily. ??? acetaminophen (TYLENOL) 325 mg tablet Take 650 mg by mouth every 4 hours as needed. ALLERGIES/ADVERSE REACTIONS Allergies as of 06/30/2011 ??? 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 MSK: strength is 5/5 upper and lower extremities, muscles non-tender to palpation Skin: No rashes or erythema Neuro: CN II-XII grossly intact. Reflexes 2+ bilaterally upper and lower extremities. Mental Status: alert, oriented, cooperative, appropriate Assessment and Plan: Mr. Dyson is a 51 y.o. male whom I am seeing at the request of Zoila Lazaro for evaluation of joint pain. Given patient's clinical symptoms of symmetrical joint distribution involving bilateral wrists, MCPsand PIPs excluding DIPs, this is most consistent with a diagnosis of Rheumatoid Arthritis. This is further supported by morning stiffness lasting an hour, symptoms present for more than six weeks and more than three joints involved Although he has a negative RF, this may be the case in 75% of patients and treatment should be begunwith Methotrexate as well as a stronger NSAID i.e. Naproxen. We will follow him up in 6 weeks for improvement in symptoms. - CBC - CMP (LFT's included to assess baseline levels prior to beginning Mtx treatment) - Naproxen 500mg BID with meals - Methotrexate 12.5mg weekly - Folic Acid supplementation documented in this encounter Plan of Treatment Not on filedocumented as of this encounter Procedures Procedure Name Priority Date/Time Associated Diagnosis Comme nts DIFFERENTIAL, Routine 06/30/2011 4:00 PM Results for this AUTOMATED EDT procedure are i n the results section. CBC (WITH DIFF) Routine 06/30/2011 4:00 PM Joint pain Result s for this EDT procedure are i n the results section. documented in this encounter Results (ABNORMAL) A-DIFF (06/30/2011 4:00 PM EDT) [facility] gist Method Time Signature Neutrophils % 79.3 (H) 34.0 - CERNER 71.0 % MILLENNIUM Neutr Abs (ANC) 7.62 (H) 1.50 - CERNER 6.30 MILLENNIUM x10(3)/mc L Lymphocytes % 10.6 (L) 19.0 - CERNER 53.0 % MILLENNIUM Lymphocytes Abs 1.0 1.0 - 3.6 CERNER x10(3)/mc MILLENNIUM L Monocytes % 9.2 4.0 - CERNER 13.0 % MILLENNIUM Monocyte Abs 0.9 0.2 - 1.0 CERNER x10(3)/mc MILLENNIUM L Eosinophils % 0.6 0.0 - 7.0 CERNER % MILLENNIUM Eosinophils Abs 0.1 0.0 - 0.5 CERNER x10(3)/mc MILLENNIUM L Basophils % 0.2 0.0 - 2.0 CERNER % MILLENNIUM Basophils Abs 0.0 0.0 - 0.2 CERNER x10(3)/mc MILLENNIUM L Immature Gran % 0.10 0.00 - CERNER 0.66 % MILLENNIUM Comment: Immature granulocytes(IG's)percentage an d absolute count will include metamyelocytes, myelocytes, and promyelo cytes. Blood smears from CBCs yielding IG's will be scanned manually for concor dance. If this scan disagrees with the automated IG or if promyelocytes are not ed, a manual differential will be performed. Karen Gran Abs 0.01 0.00 - 0.05 x10(3)/mcL CER NER MILLENNIUM Specimen Anatomical Collection Method Collection Time Receive d Time (Source) Location / / Volume Laterality Blood specimen 06/30/2011 4:00 PM 011 4:12 (specimen) EDT PM EDT Mandeep Dumont MD HEMATOLOGY ORDERABLES Performing Organization Address City/State/[place] [address] CERNER MILLENNIUM CBC (with Diff) (06/30/2011 4:00 PM EDT) P athologist Signature WBC 9.6 4.0 - 10.0 CERNER x10(3)/mcL MILLENNIUM RBC 5.14 4.63 - 6.08 CERNER x10(6)/mcL MILLENNIUM Hemoglobin 15.2 13.7 - 17.5 CERNER gm/dL MILLENNIUM Hematocrit 43.6 40.0 - 51.0 CERNER % MILLENNIUM MCV 84.8 79.0 - 92.0 CERNER fL MILLENNIUM MCH 29.6 25.6 - 32.2 CERNER pg MILLENNIUM MCHC 34.9 32.0 - 36.5 CERNER gm/dL MILLENNIUM Platelets 301 145 - 370 CERNER x10(3)/mcL MILLENNIUM RDWSD 43.3 35.0 - 46.0 CERNER fL MILLENNIUM RDWCV 13.9 10.9 - 14.4 CERNER % MILLENNIUM MPV 10.0 9.0 - 12.0 CERNER fL MILLENNIUM Specimen Anatomical Collection Method Collection Time Receive d Time (Source) Location / / Volume Laterality Blood specimen 06/30/2011 4:00 PM 011 4:12 (specimen) EDT PM EDT Mandeep Dumont MD HEMATOLOGY ORDERABLES Performing Organization Address City/State/[place] [address] [facility] documented in this encounter Visit Diagnoses Diagnosis Joint pain - Primary Pain in joint, site unspecified Trauma Injury, other and unspecified, unspecifi ed site Paresthesia Disturbance of skin sensation documented in this encounter Care Teams Regional Marketing Director Relationship Specialty Start Date End Date Unknown PCP - General 07/30/10 None documented as of this encounter
== END 2022-03-07 03:22 | disposition home or self-care (01) ==
PROVIDERS: PCP Family Medicine; Visit Provider Family Medicine

== ENCOUNTER 2023-05-12 09:05 | Outpatient (CLI) | payer OTHER, SELFPAY ==
[2023-05-12 13:24] LABS: ALT 41 U/L (16-63); AST 45 U/L (15-37); Albumin 3.7 g/dL (3.4-5.0); Alkaline Phosphatase 125 U/L (46-116); Anion Gap 7.3 mmol/L (3-11); BUN 25 mg/dL (7-18); Bilirubin, Total 0.4 mg/dL (0.2-1.0); CO2 26.7 mmol/L (21.0-32.0); CREATININE 0.8 mg/dL (0.70-1.30); Chloride 104 mmol/L (98-107); Estimated GFR 100.69 (mL/min/1.73m2); Glucose 109 mg/dL (74-106); Potassium 4.1 mmol/L (3.5-5.1); Sodium 138 mmol/L (136-145); Total Protein 7.1 g/dL (6.4-8.2)
[2023-05-12 13:44] LABS: Calculated LDL 83 mg/dL (<100); Cholesterol 150 mg/dL (<200); HDL Cholesterol 48 mg/dL (40-60); Triglyceride 97 mg/dL (<150)
[2023-05-12 13:49] LABS: Hemoglobin A1C 5.9 % (<5.7)
[2023-05-12 17:51] LABS: Rheumatoid Factor <8.6 IU/mL (<12.0)
[2023-05-13 09:13] LABS: Cyclic Citrullinated Peptide <2.5 U/mL (<5.0)
[2023-05-13 09:40] LABS: Lyme Ab w Rflx to Lyme Confirm Negative (Negative)
[2023-05-13 10:30] LABS: HIV-1/2 Ag & Ab Screen Negative (Negative)
[2023-05-13 10:31] LABS: Hepatitis C Ab w Rflx HCV PCR Negative (Negative)
[2023-05-14 14:10] LABS: ANA Interpretation Positive (Negative); ANA Titer Pattern 1:160 Speckled
[2023-05-14 21:43] LABS: Anaplasma phagocytophilum Negative (Negative); B. miyamotoi PCR Negative (Negative); Babesia divergens/MO-1 Negative (Negative); Babesia duncani Negative (Negative); Babesia microti Negative (Negative); Ehrlichia chaffeensis Negative (Negative); Ehrlichia ewingii/canis Negative (Negative); Ehrlichia muris eauclairensis Negative (Negative)
== END 2023-05-12 09:06 | disposition home or self-care (01) ==
LOC: LOS 09:05
PROVIDERS: PCP Family Medicine; Referring Provider Family Medicine; Visit Provider Family Medicine
DX: Z00.00 Encounter for general adult medical examination without abnormal findings; Z13.6 Encounter for screening for cardiovascular disorders; E66.01 Morbid (severe) obesity due to excess calories; R73.01 Impaired fasting glucose; Z11.4 Encounter for screening for human immunodeficiency virus [HIV]; M25.542 Pain in joints of left hand; M25.541 Pain in joints of right hand; M25.572 Pain in left ankle and joints of left foot; M25.571 Pain in right ankle and joints of right foot
CPT/HCPCS: 36415; 80053; 80061; 85652; 86200; 86803; 87389; 87798; 83036; 86038; 86140; 86431; 86618

== ENCOUNTER 2023-06-16 20:06 | Outpatient (REF) | payer OTHER, SELFPAY | END 2023-06-16 20:07 | disposition home or self-care (01) | LOC: LBN 20:06 | PROVIDERS: PCP Nurse Practitioner Family; Visit Provider Nurse Practitioner Family | DX: R76.8 Other specified abnormal immunological findings in serum (principal) | CPT/HCPCS: 87086 ==

== ENCOUNTER 2023-10-20 12:47 | Outpatient (CLI) | payer OTHER, SELFPAY ==
[2023-10-20 07:13] LABS: Abs Immature Grans 0.02 10^3/uL (0.0-0.06); Absolute Basophil Count 0.04 10^3/uL (0.0-0.2); Absolute Eosinophil Count 0.33 10^3/uL (0.0-0.7); Absolute Lymphocyte Count 1.12 10^3/uL (1.2-3.4); Absolute Monocyte Count 0.82 10^3/uL (0.1-0.8); Absolute Neutrophil Count 5.45 10^3/uL (1.2-6.7); Basophils % 0.5; ESR 3 mm/hr (0-20); Eosinophils % 4.2; HCT 43.5 % (40.0-50.0); HGB 14.6 g/dL (13.5-17.5); Immature Grans % 0.3; Lymphocytes % 14.4; MCH 30.2 pg (27.0-33.0); MCHC 33.6 % (32.0-36.0); MCV 90 fL (80-95); MPV 9.3 fL (8.0-11.0); Monocytes % 10.5; Neutrophils % 70.1; Platelet Count 312 10^3/uL (130-400); RBC 4.83 10^6/uL (4.36-5.78); RDW 14.9 % (11.8-14.1); RDW-SD 49.2 fL; WBC 7.78 10^3/uL (4.4-10.8)
== END 2023-10-20 12:48 | disposition home or self-care (01) ==
LOC: LBO 12:48
PROVIDERS: Family Medicine; PCP Nurse Practitioner Family; Visit Provider Internal Medicine Rheumatology
DX: M79.641 Pain in right hand (principal); M79.642 Pain in left hand; M79.671 Pain in right foot; M79.672 Pain in left foot; L40.50 Arthropathic psoriasis, unspecified
CPT/HCPCS: 36415; 85652; 85025

== ENCOUNTER 2024-06-01 10:27 | Outpatient (CLI) | payer OTHER, SELFPAY ==
[2024-06-01 12:33] LABS: ALT 43 U/L (16-63); AST 31 U/L (15-37); Albumin 3.6 g/dL (3.4-5.0); Alkaline Phosphatase 145 U/L (46-116); Anion Gap 5.9 mmol/L (3-11); BUN 25 mg/dL (7-18); Bilirubin, Total 0.45 mg/dL (0.2-1.0); CO2 28.1 mmol/L (21.0-32.0); CREATININE 0.8 mg/dL (0.70-1.30); Calcium 8.6 mg/dL (8.5-10.1); Calculated LDL 68 mg/dL (<100); Chloride 105 mmol/L (98-107); Cholesterol 143 mg/dL (<200); Estimated GFR 100.06 (mL/min/1.73m2); Glucose 132 mg/dL (74-106); HDL Cholesterol 58 mg/dL (40-60); Potassium 3.9 mmol/L (3.5-5.1); Sodium 139 mmol/L (136-145); Total Protein 6.9 g/dL (6.4-8.2); Triglyceride 85 mg/dL (<150)
== END 2024-06-01 10:28 | disposition home or self-care (01) ==
LOC: LOS 10:27
PROVIDERS: PCP Nurse Practitioner Family; Referring Provider Nurse Practitioner Family; Visit Provider Nurse Practitioner Family
DX: E78.5 Hyperlipidemia, unspecified (principal); E66.9 Obesity, unspecified; L30.1 Dyshidrosis [pompholyx]; Z68.41 Body mass index [BMI] 40.0-44.9, adult
CPT/HCPCS: 36415; 80053; 80061

== ENCOUNTER 2025-01-06 02:56 | Outpatient (CLI) | payer OTHER, SELFPAY ==
[2025-01-06 16:57] LABS: ESR 12 mm/hr (0-20)
[2025-01-06 16:58] LABS: Abs Immature Grans 0.02 10^3/uL (0.0-0.06); Absolute Basophil Count 0.06 10^3/uL (0.0-0.2); Absolute Eosinophil Count 0.24 10^3/uL (0.0-0.7); Absolute Monocyte Count 0.87 10^3/uL (0.1-0.8); Absolute Neutrophil Count 5.35 10^3/uL (1.2-6.7); Basophils % 0.7 %; Eosinophils % 2.9 %; HCT 40.8 % (40.0-50.0); HGB 14.3 g/dL (13.5-17.5); Immature Grans % 0.2 %; Lymphocytes % 19.7 %; MCH 30.8 pg (27.0-33.0); MCV 88 fL (80-95); MPV 9.4 fL (8.0-11.0); Monocytes % 10.7 %; Neutrophils % 65.8 %; Platelet Count 284 10^3/uL (130-400); RBC 4.65 10^6/uL (4.36-5.78); RDW 14.3 % (11.8-14.1); RDW-SD 45.8 fL; WBC 8.14 10^3/uL (4.4-10.8)
[2025-01-06 18:12] LABS: ALT 41 U/L (16-63); AST 33 U/L (15-37); Alkaline Phosphatase 160 U/L (46-116); BUN 21 mg/dL (7-18); Bilirubin, Total 0.4 mg/dL (0.2-1.0); CREATININE 0.8 mg/dL (0.70-1.30); Calcium 8.9 mg/dL (8.5-10.1); Chloride 103 mmol/L (98-107); Estimated GFR 100.06 (mL/min/1.73m2); Glucose 91 mg/dL (74-106); Potassium 3.7 mmol/L (3.5-5.1); Sodium 139 mmol/L (136-145); Total Protein 7.5 g/dL (6.4-8.2)
[2025-01-06 18:48] LABS: C-Reactive Protein 0.61 mg/dL (<or=0.5)
== END 2025-01-06 02:57 | disposition home or self-care (01) ==
LOC: LBO 02:56
PROVIDERS: PCP Nurse Practitioner Family; Visit Provider Internal Medicine Rheumatology
DX: L40.50 Arthropathic psoriasis, unspecified (principal)
CPT/HCPCS: 36415; 80053; 85652; 85025; 86140

== ENCOUNTER 2025-06-02 16:31 | Outpatient (REF) | payer OTHER, SELFPAY ==
[2025-06-02 20:58] LABS: HCT 40.0 % (40.0-50.0); HGB 13.5 g/dL (13.5-17.5); MCH 31.3 pg (27.0-33.0); MCHC 33.8 % (32.0-36.0); MCV 93 fL (80-95); MPV 9.9 fL (8.0-11.0); Platelet Count 288 10^3/uL (130-400); RBC 4.32 10^6/uL (4.36-5.78); RDW 14.8 % (11.8-14.1); RDW-SD 50.1 fL; WBC 7.80 10^3/uL (4.4-10.8)
[2025-06-02 21:44] LABS: ALT 44 U/L (16-63); AST 31 U/L (15-37); Albumin 4.1 g/dL (3.4-5.0); Alkaline Phosphatase 142 U/L (46-116); Anion Gap 10.0 mmol/L (3-11); BUN 23 mg/dL (7-18); Bilirubin, Total 0.3 mg/dL (0.2-1.0); CO2 26.0 mmol/L (21.0-32.0); Calcium 8.6 mg/dL (8.5-10.1); Calculated LDL 72 mg/dL (<100); Chloride 106 mmol/L (98-107); Cholesterol 141 mg/dL (<200); Estimated GFR 103.53 (mL/min/1.73m2); Glucose 102 mg/dL (74-106); HDL Cholesterol 55 mg/dL (>or=40); NT-proBNP 9 pg/mL (<300); Potassium 3.9 mmol/L (3.5-5.1); Sodium 142 mmol/L (136-145); TSH (W/Ref FT4) 1.34 uIU/mL (0.36-3.74); Total Protein 7.0 g/dL (6.4-8.2); Triglyceride 71 mg/dL (<150)
== END 2025-06-02 16:32 | disposition home or self-care (01) ==
LOC: LBN 16:31
PROVIDERS: PCP Nurse Practitioner Family; Visit Provider Nurse Practitioner Family
DX: E78.5 Hyperlipidemia, unspecified (principal); R09.89 Other specified symptoms and signs involving the circulatory and respiratory systems; R63.5 Abnormal weight gain; K21.9 Gastro-esophageal reflux disease without esophagitis
CPT/HCPCS: 80053; 80061; 85027; 83880; 84443